=== PATIENT | male | born 1935 | race Caucasian/White ===

== ENCOUNTER 2017-01-21 09:07 | Inpatient (IN) | payer MEDICARE, BC ==
[2017-01-21] MEDS ORDERED: Sodium Chloride 0.9% 5 ML Syringe FLUSH PRN ×2 (09:19→10:36)
--- NOTE | 2017-01-21 09:21 | EDM.PDOC ---
ED HPI DIZZINESS - General Chief Complaint: Neurological Problem Stated Complaint: Dizziness Time Seen by Provider: 01/21/17 09:10 Source of Information: Reports: Patient, EMS Exam Limitations: Reports: No limitations - History of Present Illness INITIAL COMMENTS - FREE TEXT/NARRATIVE: 81 YO WM presents to ER by EMS from [facility] with complaint of dizziness and near syncope. Pt reports waking around 6:30am feeling lightheaded with mild ataxia. Pt states he went back to bed and woke around 8:30am and upon standing felt dizzy and fell to the floor. Pt called EMS. Pt denies any injury but states when he moves his head he can reproduce the dizziness. Pt denies any chest pain , denies shortness of breath, denies nausea/vomiting. Pt states he has had a "head cold" for the last couple of weeks which he has been taking mucinex. Symptom Onset Date: 01/21/17 Symptom Onset Time: 06:30 Baseline Function: Reports: ambulatory, needs assistance Quality: Reports: lightheaded Severity: mild Improves With: Reports: head movement Worsens With: Reports: head movement Context, Dizziness: Reports: recent illness. Denies: recent infection, recent trauma, recent air travel, drug abuse, alcohol abuse, new medications Associated Symptoms: Reports: decreased ability to walk, off balance, falls, needs assistance to walk - Related Data Allergies/ADRs: Allergies Allergy/AdvReac Type Severity Reaction Status Date / Time Penicillins Allergy Swelling Verified 01/21/17 10:03 vancomycin Allergy Anaphylactic Verified 01/21/17 10:03 Shock ED ROS GENERAL - Review of Systems Review Of Systems: ROS reveals no pertinent complaints other than HPI. Constitutional: Reports: no symptoms HEENT: Reports: No symptoms Respiratory: Reports: no symptoms Cardiovascular: Reports: Edema, Lightheadedness. Denies: Chest pain, Blood pressure problem, Claudication, Orthopnea, Palpitations, Syncope Endocrine: Reports: no symptoms GI/Abdominal: Reports: No symptoms : Reports: no symptoms Musculoskeletal: Reports: no symptoms Skin: Reports: no symptoms Neurological: Reports: dizziness, weakness. Denies: confusion, headache, numbness, paresthesia, pre-existing deficit, seizure, syncope, trouble speaking , change in speech Psychiatric: Reports: No symptoms Hematologic/Lymphatic: Reports: no symptoms Immunologic: Reports: no symptoms ED EXAM, DIZZINESS - Physical Exam Exam: See Below Exam Limited By: No limitations General Appearance: alert, WD/WN, no apparent distress Eye Exam: bilateral eye: PERRL Ears: normal external exam, normal canal, hearing grossly normal, normal TMs Nose: nasal drainage Throat/Mouth: Normal inspection, Normal lips, Normal teeth, Normal gums, Normal oropharynx, Normal voice, No airway compromise Head Exam: atraumatic, normocephalic Neck: normal inspection, supple, non-tender, full range of motion Respiratory/Chest: no respiratory distress, no accessory muscle use, chest non- tender, decreased breath sounds Cardiovascular: JVD, irregularly irregular. No: no edema GI/Abdominal: normal bowel sounds, soft, non tender, no organomegaly, no distention, no abnormal bruit, no mass Neurological: alert, normal mood/affect, normal dorsiflexion, CN II-XII intact, normal plantar flexion, normal gait, normal reflexes, no motor/sensory deficits , oriented x 3 Back Exam: normal inspection, full range of motion, NT Extremities: pedal edema Psychiatric: normal affect, normal mood Skin Exam: Warm, Dry, Intact, Normal color, No rash EKG INTERPRETATION EKG Date: 01/21/17 Time: 09:30 Rhythm: NSR Rate (beats/min): 63 [place]: normal P-wave: absent QRS: LBBB ST-T: normal QT: normal Course - Vital Signs Last Recorded V/S: Last Vital Signs Temp 36.2 C 01/21/17 09:30 Pulse 70 01/21/17 09:30 Resp 26 H 01/21/17 09:30 BP 170/67 H 01/21/17 09:30 Pulse Ox 89 L 01/21/17 09:30 - Orders/Labs/Meds Orders: Active Orders 24 hr Category Date Time Status EKG Documentation Completion [RC] ASDIRECTED Care 01/21/17 09:20 Active Chest 1V Frontal [CR] Stat Exams 01/21/17 09:19 Taken Head wo Cont [CT] Stat Exams 01/21/17 09:19 Taken UA W/MICROSCOPIC [URIN] Stat Lab 01/21/17 09:19 Uncollected Sodium Chloride 0.9% [Syrex Flush] Med 01/21/17 09:19 Active 5 ml FLUSH Q8HR PRN Peripheral IV Insertion Adult [OM.PC] Routine Oth 01/21/17 09:19 Ordered EKG 12 Lead [EK] Routine Ther 01/21/17 09:19 Ordered Medication Orders Sodium Chloride (Syrex Flush) 5 ml FLUSH Q8HR PRN PRN Reason: Keep Vein Open Labs: Laboratory Tests 01/21/17 01/21/17 01/21/17 Range/Units 09:25 09:25 09:25 WBC 7.6 (5.0-10.0) 10^3/uL RBC 4.19 L (4.50-6.00) 10^6/uL Hgb 12.6 L (13.0-17.0) g/dL Hct 37.6 L (40.0-52.0) % MCV 89.8 (82.0-92.0) fL MCH 30.1 (27.0-31.0) pg MCHC 33.6 (32.0-36.0) g/dL RDW 15.6 H (11.5-14.5) % Plt Count 152 (150-300) 10^3/uL MPV 7.1 L (7.4-10.4) fL Neut % (Auto) 79.8 H (50.0-70.0) % Lymph % (Auto) 13.8 L (20.0-40.0) % [place]gs % (Auto) 4.0 (2.0-8.0) % Eos % (Auto) 1.7 (1.0-3.0) % Baso % (Auto) 0.7 (0.0-1.0) % Neut # 6.1 (2.5-7.0) 10^3/uL Lymph # 1.0 (1.0-4.0) 10^3/uL Griggs # 0.3 (0.1-0.8) 10^3/uL Eos # 0.1 (0.1-0.3) 10^3/uL Baso # 0.1 (0.0-0.1) 10^3/uL PT 26.7 H (8.9-11.4) SEC INR 2.5 H (0.9-1.1) APTT 34.9 H (20.8-31.2) SEC Sodium 143 (136-145) mmol/L Potassium 3.9 (3.3-5.3) mmol/L Chloride 105 (98-115) mmol/L Carbon Dioxide 27.8 (21.0-32.0) mmol/L BUN 22 (6-25) mg/dL Creatinine 0.98 (0.51-1.17) mg/dL Est Cr Clr Drug Dosing 58.12 mL/min Estimated GFR (MDRD) > 60 mL/min Glucose 110 (70-110) mg/dL Calcium 8.5 L (8.7-10.3) mg/dL Total Bilirubin 0.7 (0.2-1.0) mg/dL AST 22 (15-37) U/L ALT 19 (12-78) U/L Alkaline Phosphatase 137 H (46-116) IU/L Creatine Kinase 47 (26-276) U/L CK-MB (CK-2) 0.70 (0.00-4.30) ng/mL Troponin I 0.05 (0.00-0.070) ng/mL B-Natriuretic Peptide 210 H (0-100) pg/mL Total Protein 6.8 (6.4-8.2) g/dL Albumin 3.26 (3.00-4.80) g/dL Meds: Medications Generic Name Dose Route Start Last Admin Trade Name Freq PRN Reason Stop Dose Admin Sodium Chloride 5 ml 01/21/17 09:19 Syrex Flush FLUSH Q8HR PRN Keep Vein Open - Radiology Interpretation Free Text/Narrative:: CT Head- mild generalized atrophy with small vessel ischemic changes. NAD CXR- NAD; cardiomegaly Departure - Departure Time of Disposition: 10:35 Disposition: Refer to Observation Condition: fair Clinical Impression: Dizziness, Peripheral edema - My Orders Last 24 Hours: My Active Orders 01/21/17 09:19 Chest 1V Frontal [CR] Stat Head wo Cont [CT] Stat UA W/MICROSCOPIC [URIN] Stat Sodium Chloride 0.9% [Syrex Flush] 5 ml FLUSH Q8HR PRN Peripheral IV Insertion Adult [OM.PC] Routine EKG 12 Lead [EK] Routine 01/21/17 09:20 EKG Documentation Completion [RC] ASDIRECTED - Assessment/Plan Last 24 Hours: My Active Orders 01/21/17 09:19 Chest 1V Frontal [CR] Stat Head wo Cont [CT] Stat UA W/MICROSCOPIC [URIN] Stat Sodium Chloride 0.9% [Syrex Flush] 5 ml FLUSH Q8HR PRN Peripheral IV Insertion Adult [OM.PC] Routine EKG 12 Lead [EK] Routine 01/21/17 09:20 EKG Documentation Completion [RC] ASDIRECTED Assessment:: 1. dizziness- r/o cerebellar injury 2. pedal edema Plan: 1. admit for observation 2. continue coumadin 3. MRI/MRA brain 4. lasix 20mg IV for peripheral edema
[2017-01-21 10:05] LABS: CHLORIDE,CL 105 mmol/L (98-115); SODIUM,NA 143 mmol/L (136-145)
[2017-01-21] MEDS ORDERED: GADOPENTETATE DIMEGLUMINE IVPUSH ONE ×3 (12:48→12:49)
[2017-01-21] MEDS ORDERED: Lidocaine 2% 100 MG/5 ML Syringe IVPUSH PRN (13:25)
[2017-01-21] MEDS ORDERED: Atropine 0.1 MG/ML 10 ML Syringe IVPUSH PRN (13:25)
[2017-01-21] MEDS ORDERED: Nitroglycerin 0.4 MG Tab.SL SL PRN (13:25)
[2017-01-21] MEDS ORDERED: EPINEPHrine 1:10,000 1 MG/10 ML Syringe IVPUSH PRN (13:25)
[2017-01-21] MEDS ORDERED: Acetaminophen 650 MG Tab.ER PO PRN (13:35)
[2017-01-21] MEDS: Losartan 50 MG Tab PO SCH (15:29)
[2017-01-21] MEDS: Docusate Sodium 100 MG Cap PO SCH (15:29)
[2017-01-21] MEDS: atorvaSTATin 10 MG Tab PO SCH (15:32)
[2017-01-21] MEDS: Sertraline 50 MG Tab PO SCH (15:32)
[2017-01-21] MEDS: Warfarin 5 MG Tab PO SCH (15:32)
[2017-01-21] MEDS: Potassium Chloride 10 MEQ Tab.ER PO SCH (15:33)
[2017-01-21] MEDS: Meclizine 25 MG Tab PO PRN (18:11)
[2017-01-21] MEDS: Hydrochlorothiazide/Triamterene 25-37.5 MG Cap PO SCH (18:11)
[2017-01-22] MEDS: Potassium Chloride 10 MEQ Tab.ER PO SCH (08:28)
[2017-01-22] MEDS: Docusate Sodium 100 MG Cap PO SCH (08:28)
[2017-01-22] MEDS: Sertraline 50 MG Tab PO SCH (08:28)
[2017-01-22] MEDS: Warfarin 5 MG Tab PO SCH (08:28)
[2017-01-22] MEDS: Losartan 50 MG Tab PO SCH (08:28)
[2017-01-22] MEDS: atorvaSTATin 10 MG Tab PO SCH (08:28)
[2017-01-22] MEDS: Hydrochlorothiazide/Triamterene 25-37.5 MG Cap PO SCH (08:32)
[2017-01-22] MEDS: Meclizine 25 MG Tab PO PRN (09:53)
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
[2017-01-22] MEDS: Furosemide 40 MG Tab PO SCH (13:13)
[2017-01-22] MEDS: Lutein/Minerals/Vitamins A, C & E Tab PO SCH (13:13)
[2017-01-23] MEDS: Docusate Sodium 100 MG Cap PO SCH (08:20)
[2017-01-23] MEDS: Warfarin 5 MG Tab PO SCH (08:21)
[2017-01-23] MEDS: Losartan 50 MG Tab PO SCH (08:21)
[2017-01-23] MEDS: Furosemide 40 MG Tab PO SCH (08:22)
[2017-01-23] MEDS: Potassium Chloride 10 MEQ Tab.ER PO SCH (08:22)
[2017-01-23] MEDS: Lutein/Minerals/Vitamins A, C & E Tab PO SCH (08:23)
[2017-01-23] MEDS: atorvaSTATin 10 MG Tab PO SCH (08:25)
[2017-01-23] MEDS: Sertraline 50 MG Tab PO SCH (08:26)
--- NOTE | 2017-01-23 11:44 | PN ---
01/23/2017 PATIENT NAME: KEVAN ANTHONY SUBJECTIVE: This is an 81-year-old gentleman that was at home. He lives by himself in assisted living. He does have some episodes of dizziness. He tells me he actually fell, he did injure himself, but he was able to walk safely. He says the dizziness did not improve. At that time, he did call the ambulance service to come get him. He was seen in the ER here at the [facility] and evaluated at that time. The patient states that he is still really dizzy today. He denies any chest pain, shortness of breath, or heart palpitations. He says that when he is up moving around, he is more dizzy. He says he has double vision. He is wearing an eye patch. Today, he says when he wears the eye patch, the double vision does not affect him and he is not so wobbly on his feet. He says it helps with the dizziness. He says his appetite has been good. OBJECTIVE: VITAL SIGNS: Today, temperature is 98.4, pulse is 75, blood pressure is 147/80, the patient's respiratory rate is 28, oxygen saturations are 93% on room air. GENERAL: This is an elderly gentleman in no acute distress. He is wearing an eye patch at this time. HEART: Sounds are distant, but he does have a murmur with his artificial valve. LUNGS: Sounds are clear in upper lobes, diminished at bilateral bases mostly. ABDOMEN: Soft, nontender, nondistended. Bowel sounds present x4. LABORATORY DATA: The patient's lab work today: He did not have any. He had a CBC obtained on , which showed a white count within normal range at 7.6, hemoglobin 12.6, and platelet count 152. Chemistry panel was unremarkable except for alkaline phosphatase was slightly elevated at 137. The patient's brain natriuretic peptide was slightly elevated at that time at 210. IMPRESSION AND PLAN: 1. Vertigo. Plan: The patient may have meclizine 25 mg as needed every four hours for dizziness. He was seen by Physical Therapy yesterday for vestibular rehab and walking/ gait. I will have the nurses walk him in the halls four times a day today to see how he does. 2. Diplopia with macular degeneration. Plan: Continue with the eye patch at this time. He does see his storekeeper steward on a regular basis. 3. Chronic atrial fibrillation, on anticoagulation therapy. Plan: Continue with Coumadin at this time. The patient's INR on admission was within acceptable range at 2.5. We will continue with telemetry. 4. History of transient ischemic attacks: The patient's MRA and MRI were negative for any acute findings. We will continue with aspirin at 81 mg daily. 5. History of congestive heart failure. Plan: The patient's most recent cardiac echo did show ejection fracture of 50%. We will continue with accurate inputs and outputs and daily weights. We will also continue with a low-salt diet. The patient is on Lasix 40 mg daily along with Cozaar 50 mg daily, potassium chloride 10 mEq daily for diuretic therapy. 6. Aortic stenosis. The patient is status post aortic valve repair that was just recently done last April. 7. History of mitral valve repair back in 1978. Plan: Continue with Coumadin, stable. 8. Hypertension. Plan: Blood pressures have been controlled. Continue with Cozaar 50 mg daily. 9. Hyperlipidemia. Plan: Continue with Lipitor 10 mg daily. 10.History of depression. Plan: Continue with Zoloft 25 mg daily. 11.Anemia. Plan: The patient's hemoglobin was stable on at 12.6. 12.Obstructive sleep apnea. Plan: Continue with continuous positive airway pressure mask. The patient has his own mask here in the hospital. 13.Overall plan: The patient seems to be doing okay. We will continue to monitor the patient. We will repeat the patient's lab work. /[id number]/MODL MTDD
[2017-01-24] MEDS: Docusate Sodium 100 MG Cap PO SCH (08:02)
[2017-01-24] MEDS: Warfarin 5 MG Tab PO SCH (08:03)
[2017-01-24] MEDS: Lutein/Minerals/Vitamins A, C & E Tab PO SCH (08:03)
[2017-01-24] MEDS: Furosemide 40 MG Tab PO SCH (08:03)
[2017-01-24] MEDS: Potassium Chloride 10 MEQ Tab.ER PO SCH (08:04)
[2017-01-24] MEDS: Sertraline 50 MG Tab PO SCH (08:04)
[2017-01-24] MEDS: Losartan 50 MG Tab PO SCH (08:04)
[2017-01-24] MEDS: atorvaSTATin 10 MG Tab PO SCH (08:05)
--- NOTE | 2017-01-24 12:49 | PN ---
01/24/2017 PATIENT NAME: KEVAN ANTHONY SUBJECTIVE: This is an 81-year-old gentleman who lives by himself in an assisted living, and he was having some episodes of dizziness. He had unsteady gait. He also has been complaining of some double vision with his macular degeneration. He felt he was unsafe at his home. He states he did fall but did not injure himself. He was brought into the emergency room at that time. Today, the patient states that he has been able to get up and walk a little bit in the [place] by himself. He has to hold onto the railing. He still feels quite dizzy. He says that he just feels weak. He says he just does not have the strength that he usually has. He is still concerned about going home by himself with the double vision, dizziness, and weakness. He denies any chest pain, shortness of breath, or heart palpitations. OBJECTIVE: VITAL SIGNS: Today, temperature is 97.3, pulse is 61, blood pressure is 142/69. The patient's respiratory rate is 20. The patient's oxygen saturations on room air is 93%. GENERAL: This is an elderly white male in no acute distress with an eye patch on his right eye. HEART: Heart tones, the patient does have a distinct murmur with his artificial heart valve. LUNGS: Lung sounds are clear in upper lobes, diminished at bilateral bases. ABDOMEN: Large, nontender, nondistended. Bowel sounds present x4. EXTREMITIES: The patient does have +3 bilateral pitting edema, which he states is his baseline. The patient did not have any lab work drawn today. IMPRESSION AND PLAN: 1. Vertigo/dizziness. Plan: The patient does have meclizine 25 mg that he takes every 4 hours as needed for dizziness. The patient was seen by Physical Therapy on Wednesday for strengthening, conditioning, and vestibular rehab. He will be seen again tomorrow, Wednesday. I did have the patient walk in the [place] 4 times a day with nursing staff here over the weekend. 2. Diplopia with history of macular degeneration. Plan: Continue with right eye patch at this time. The patient states he does have an appointment here in about a week with Dr. Fu, who is his polisher eyeglass frames in [place]. 3. Chronic atrial fibrillation, on anticoagulation therapy. Plan: Continue with Coumadin at this time. INR on admission was within acceptable range at 2.5. We will continue with telemetry. He has been rate controlled. 4. History of transient ischemic attacks. The patient's MRA and MRI were negative for any acute findings on admission in the ER. We will continue with aspirin 81 mg daily. 5. History of congestive heart failure. Plan: The patient's most recent cardiac echo did show an ejection fraction of 50%. We will continue with daily weights and accurate I and Os. Continue with low-salt diet. The patient continues on Lasix 40 mg daily along with Cozaar 50 mg daily. He also received potassium chloride 10 mEq daily. This is his diuretic therapy regimen. 6. Aortic stenosis. The patient is status post aortic valve repair this past April. 7. History of mitral valve repair back in 1978. Plan: Continue with Coumadin, he has been stable. 8. Hypertension. Plan: Blood pressures have been controlled. Continue with Cozaar 50 mg daily. 9. History of hyperlipidemia. Plan: Continue with Lipitor 10 mg daily. 10.History of depression. Plan: Continue with Zoloft 25 mg daily. 11.Anemia. Plan: The patient's hemoglobin was stable on admission at 12.6. We will repeat a CBC tomorrow morning. 12.Obstructive sleep apnea. Plan: Continue with CPAP mask at night. He does have his own mask here that he uses in the hospital. OVERALL PLAN: The patient will be evaluated by physical therapy again tomorrow, possibly swing bed status tomorrow for strengthening and vestibular rehab. /[id number]/MODL
[2017-01-25 06:08] VITALS: BP 133/76
[2017-01-25 08:00] LABS: CHLORIDE,CL 106 mmol/L (98-115); SODIUM,NA 142 mmol/L (136-145)
[2017-01-25] MEDS: Warfarin 5 MG Tab PO SCH (08:51)
[2017-01-25] MEDS: Docusate Sodium 100 MG Cap PO SCH (08:51)
[2017-01-25] MEDS: Losartan 50 MG Tab PO SCH (08:52)
[2017-01-25] MEDS: Potassium Chloride 10 MEQ Tab.ER PO SCH (08:52)
[2017-01-25] MEDS: Furosemide 40 MG Tab PO SCH (08:53)
[2017-01-25] MEDS: Lutein/Minerals/Vitamins A, C & E Tab PO SCH (08:53)
[2017-01-25] MEDS: Sertraline 50 MG Tab PO SCH (08:53)
[2017-01-25] MEDS: atorvaSTATin 10 MG Tab PO SCH (08:53)
--- NOTE | 2017-01-27 12:57 | PCM.DCSUM1 ---
Discharge Summary - Hospital Course Brief History: 81-year-old was initially admitted THROUGH the ED via ambulance with complaints of all near syncope/dizziness. Patient lives in [facility] and does have a wet macular degeneration and history for TIAs. Upon admission he had stated that early the day prior he started having some lightheadedness and staggering around. He then went back to bed and woke up again upon standing he had some dizziness and that's when he fell to the floor. He did not hit his head. That time he notified EMS because of his dizziness every time he seemed to move his head. He denied any nausea vomiting that was associated with his dizziness. Did have recent head cold with mild mucous production past few days however denies any hearing loss. He was admitted for further workup. It was determined that he would likely benefit from physical therapy due to his unsteady gait, high risk for falls and further injury, and weakness - Discharge Data Discharge Date: 01/25/17 Discharge Disposition: DC/Tfer W/I Hosp To Swing 61 Condition: Fair - Patient Summary/Data Consults: Consultations 01/22/17 09:30 Consult to Physical Therapy [PT Evaluation and Treatment] [CONS] Routine Hospital Course: Patient's hospital course went well. He had ongoing diplopia vertical however he had full movement bilateral ocular movement and gaze. MRA/MRI of the head and neck did show chronic ischemic changes and luncar infarcts that are chronic. We consulted with Dr Fu regarding ongoing diplopia and he felt since no acute processes on MRI/MRA that most likely not retinol patholgy regarding the patient's diplopia and recommend that he see his regular block saw operator. A patch was placed on patients right eye. He had no fever, no focal neurological deficits, facial drooping or confusion or any paresthesias that would indicate acute process or stroke. Therapy evaluated the patient and believed he could benefit due to his weakness in his lower extremities and mild ataxia as the patient does live in assisted living facility. - Discharge Plan Home Medications: Home Meds Acetaminophen [Tylenol Arthritis] 650 mg PO Q8H PRN 01/21/17 [History] Aspirin [Lo-Dose Aspirin EC] 81 mg PO DAILY 01/21/17 [History] Docusate Sodium [Colace] 200 mg PO DAILY 01/21/17 [History] Furosemide [Furosemide] 40 mg PO DAILY 01/21/17 [History] Losartan [Cozaar] 50 mg PO DAILY 01/21/17 [History] Potassium Chloride [Klor-Con M20] 10 meq PO DAILY 01/21/17 [History] Sertraline [Zoloft] 25 mg PO DAILY 01/21/17 [History] Vit A/Vit C/Vit E/Zinc/Copper [Preservision] 1 cap PO DAILY 01/21/17 [History] Vitamin B Complex 1 each PO DAILY 01/21/17 [History] Warfarin [Coumadin] 7.5 mg PO DAILY 01/21/17 [History] atorvaSTATin Calcium [Atorvastatin Calcium] 10 mg PO DAILY 01/21/17 [History] - Discharge Summary/Plan Comment DC Time >30 min.: Yes Discharge Summary/Plan Comment: Due to the patient's unsteady gait and weakness he will be placed in swing bed therapy for rehabilitation. FINAL DIAGNOSIS Primary: Vertigo; likely peripheral etiology. 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 Questionable etiology; doubtful retinal pathology. Macular degeneration, Secondary Atrial fibrillation, chronic, History of TIA; HFrEF, chronic, diastolic, EF50%; Pulmonary hypertension, severe, Aortic stenosis; status post TAVR April 2016, History of mitral valve replacement with mechanical valve; Hypertension; Venous insufficiency with chronic edema/lymphedema; Hyperlipidemia, Depression, Anemia; normocytic, normochromic with slightly elevated RDW with cell size varibility; Obstructive sleep apnea; Pseudo-hypocalcemia; corrected with albumin Acid reflux; - Patient Data Vitals - Most Recent: Last Vital Signs Temp 97.4 F 01/25/17 06:07 Pulse 55 L 01/25/17 06:07 Resp 20 01/25/17 06:07 BP 133/76 01/25/17 08:52 Pulse Ox 94 L 01/25/17 09:11 Orthostatic Blood Pressure [ 133/64 Standing] Orthostatic Blood Pressure [ 142/77 Sitting] Orthostatic Blood Pressure [ 136/69 Supine] Weight - Most Recent: 238 lb Med Orders - Current: Current Medications Discontinued Medications Acetaminophen (Tylenol Arthritis Pain) 650 mg PO Q8H PRN PRN Reason: Pain Last Admin: 01/21/17 20:22 Dose: 650 mg Atorvastatin Calcium (Lipitor) 10 mg PO DAILY [facility] Last Admin: 01/25/17 08:53 Dose: 10 mg Atropine Sulfate (Atropine 0.1 Mg/Ml) 0 mg IVPUSH ASDIRECTED PRN PRN Reason: Heart Docusate Sodium (Colace) 200 mg PO DAILY [facility] Last Admin: 01/25/17 08:51 Dose: 200 mg Epinephrine HCl (Epinephrine 1:10,000) 1 mg IVPUSH ASDIRECTED PRN PRN Reason: Heart Furosemide (Lasix) 40 mg PO DAILY [facility] Last Admin: 01/25/17 08:53 Dose: 40 mg Gadopentetate Dimeglumine (Magnevist) 20 ml IVPUSH ONETIME ONE Stop: 01/21/17 12:49 Last Admin: 01/21/17 13:25 Dose: 20 ml Lidocaine HCl (Xylocaine 2%) 0 mg IVPUSH ASDIRECTED PRN PRN Reason: Heart Losartan Potassium (Cozaar) 50 mg PO DAILY [facility] Last Admin: 01/25/17 08:52 Dose: 50 mg Meclizine HCl (Antivert) 25 mg PO Q6H PRN PRN Reason: Dizziness Last Admin: 01/22/17 09:53 Dose: 25 mg Multivitamins/Minerals (Ocuvite) 1 each PO DAILY [facility] Last Admin: 01/25/17 08:53 Dose: 1 each Nitroglycerin (Nitrostat) 0.4 mg SL ASDIRECTED PRN PRN Reason: Heart Potassium Chloride (Klor-Con 10) 10 meq PO DAILY [facility] Last Admin: 01/25/17 08:52 Dose: 10 meq Sertraline HCl (Zoloft) 25 mg PO DAILY [facility] Last Admin: 01/25/17 08:53 Dose: 25 mg Sodium Chloride (Syrex Flush) 5 ml FLUSH Q8HR PRN PRN Reason: Keep Vein Open Triamterene/HCTZ (Dyazide 25-37.5 Mg) 1 each PO DAILY [facility] Last Admin: 01/22/17 08:32 Dose: Not Given Warfarin Sodium (Coumadin) 7.5 mg PO DAILY [facility] Last Admin: 01/25/17 08:51 Dose: 7.5 mg *Q Meaningful Use (DIS) - VTE *Q VTE Criteria *Q: - Stroke *Q Stroke Criteria *Q: - AMI *Q AMI Criteria *Q:
== END 2017-01-25 11:00 | disposition swing bed (61) | DRG 149 ==
LOC: KA.ED 09:07 → KA.MS 11:20 → OBSVTOIN 01-22 09:30
PROVIDERS: ADMIT Physician Assistant Medical; ATTEND Nurse Practitioner Family
DX: R42 Dizziness and giddiness (principal); R60.9 Edema, unspecified; I50.32 Chronic diastolic (congestive) heart failure; R55 Syncope and collapse; H53.2 Diplopia; H35.30 Unspecified macular degeneration; E83.51 Hypocalcemia; I48.2 Chronic atrial fibrillation; Z86.73 Personal history of transient ischemic attack (TIA), and cerebral infarction without residual deficits; I11.0 Hypertensive heart disease with heart failure; I27.2 Other secondary pulmonary hypertension; I35.0 Nonrheumatic aortic (valve) stenosis; Z95.2 Presence of prosthetic heart valve; I87.2 Venous insufficiency (chronic) (peripheral); E78.5 Hyperlipidemia, unspecified; F32.9 Major depressive disorder, single episode, unspecified; D64.9 Anemia, unspecified; G47.33 Obstructive sleep apnea (adult) (pediatric); K21.9 Gastro-esophageal reflux disease without esophagitis; Z79.01 Long term (current) use of anticoagulants; Z79.899 Other long term (current) drug therapy; Z88.0 Allergy status to penicillin; Z88.1 Allergy status to other antibiotic agents; W19.XXXA Unspecified fall, initial encounter
CPT/HCPCS: 70450; 70544; 70553; 71010; 80053; 81001; 82550; 82553; 83880; 84484; 85025; 85610; 85730; 93005; 99285; A9270 ×14; A9579; G0378; 36415; 97162-GP

== ENCOUNTER 2017-01-25 10:02 | Inpatient (IN) | payer MEDICARE, BC ==
[2017-01-25] MEDS ORDERED: Meclizine 25 MG Tab PO PRN (10:51)
[2017-01-25] MEDS ORDERED: EPINEPHrine 1:10,000 1 MG/10 ML Syringe IVPUSH PRN (10:51)
[2017-01-25] MEDS ORDERED: Acetaminophen 650 MG Tab.ER PO PRN ×2 (10:51→15:29)
[2017-01-25] MEDS ORDERED: Lidocaine 2% 100 MG/5 ML Syringe IVPUSH PRN (10:51)
[2017-01-25] MEDS ORDERED: Nitroglycerin 0.4 MG Tab.SL SL PRN (10:51)
[2017-01-25] MEDS ORDERED: Atropine 0.1 MG/ML 10 ML Syringe IVPUSH PRN (10:51)
[2017-01-26] MEDS: Docusate Sodium 100 MG Cap PO SCH (08:27)
[2017-01-26] MEDS: atorvaSTATin 10 MG Tab PO SCH (08:28)
[2017-01-26] MEDS: Warfarin 5 MG Tab PO SCH (08:28)
[2017-01-26] MEDS: Furosemide 40 MG Tab PO SCH (08:29)
[2017-01-26] MEDS: Potassium Chloride 10 MEQ Tab.ER PO SCH (08:29)
[2017-01-26] MEDS: Aspirin 81 MG Tab.EC PO SCH (08:29)
[2017-01-26] MEDS: Losartan 50 MG Tab PO SCH (08:29)
[2017-01-26] MEDS: Vitamin B Complex Tab PO SCH (08:30)
[2017-01-26] MEDS: Lutein/Minerals/Vitamins A, C & E Tab PO SCH (08:30)
[2017-01-26] MEDS: Sertraline 50 MG Tab PO SCH (08:30)
[2017-01-26] MEDS ORDERED: Warfarin 5 MG Tab PO SCH (09:00)
[2017-01-26] MEDS ORDERED: Furosemide 20 MG Tab PO SCH (09:00)
[2017-01-26] MEDS ORDERED: Losartan 50 MG Tab PO SCH (09:00)
[2017-01-26] MEDS ORDERED: VIT A PO SCH (09:00)
[2017-01-26] MEDS ORDERED: VIT E PO SCH (09:00)
[2017-01-26] MEDS ORDERED: Potassium Chloride 20 MEQ Tab.ER PO SCH (09:00)
[2017-01-26] MEDS ORDERED: ZINC PO SCH (09:00)
[2017-01-26] MEDS ORDERED: COPPER PO SCH (09:00)
[2017-01-26] MEDS ORDERED: VIT C PO SCH (09:00)
[2017-01-26] MEDS ORDERED: Docusate Sodium 100 MG Cap PO SCH (09:00)
[2017-01-26] MEDS ORDERED: SERTRALINE 25 MG PO SCH (09:00)
[2017-01-26] MEDS ORDERED: atorvaSTATin 10 MG Tab PO SCH (09:00)
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
[2017-01-27] MEDS: Docusate Sodium 100 MG Cap PO SCH (10:24)
[2017-01-27] MEDS: Aspirin 81 MG Tab.EC PO SCH (10:24)
[2017-01-27] MEDS: Vitamin B Complex Tab PO SCH (10:24)
[2017-01-27] MEDS: Warfarin 5 MG Tab PO SCH (10:24)
[2017-01-27] MEDS: Potassium Chloride 10 MEQ Tab.ER PO SCH (10:25)
[2017-01-27] MEDS: atorvaSTATin 10 MG Tab PO SCH (10:25)
[2017-01-27] MEDS: Furosemide 40 MG Tab PO SCH (10:25)
[2017-01-27] MEDS: Losartan 50 MG Tab PO SCH (10:25)
[2017-01-27] MEDS: Sertraline 50 MG Tab PO SCH (10:25)
[2017-01-27] MEDS: Lutein/Minerals/Vitamins A, C & E Tab PO SCH (10:25)
[2017-01-28] MEDS: Docusate Sodium 100 MG Cap PO SCH (08:52)
[2017-01-28] MEDS: Warfarin 5 MG Tab PO SCH (08:52)
[2017-01-28] MEDS: Losartan 50 MG Tab PO SCH (08:53)
[2017-01-28] MEDS: Furosemide 40 MG Tab PO SCH (08:53)
[2017-01-28] MEDS: Aspirin 81 MG Tab.EC PO SCH (08:53)
[2017-01-28] MEDS: Lutein/Minerals/Vitamins A, C & E Tab PO SCH (08:53)
[2017-01-28] MEDS: Potassium Chloride 10 MEQ Tab.ER PO SCH (08:53)
[2017-01-28] MEDS: Vitamin B Complex Tab PO SCH (08:54)
[2017-01-28] MEDS: Sertraline 50 MG Tab PO SCH (08:54)
[2017-01-28] MEDS: atorvaSTATin 10 MG Tab PO SCH (08:54)
[2017-01-28] MEDS ORDERED: GADOPENTETATE DIMEGLUMINE IVPUSH ONE (17:16)
[2017-01-29] MEDS: Losartan 50 MG Tab PO SCH (08:28)
[2017-01-29] MEDS: Sertraline 50 MG Tab PO SCH (08:29)
[2017-01-29] MEDS: Potassium Chloride 10 MEQ Tab.ER PO SCH (08:29)
[2017-01-29] MEDS: Vitamin B Complex Tab PO SCH (08:29)
[2017-01-29] MEDS: Docusate Sodium 100 MG Cap PO SCH (08:29)
[2017-01-29] MEDS: Aspirin 81 MG Tab.EC PO SCH (08:30)
[2017-01-29] MEDS: atorvaSTATin 10 MG Tab PO SCH (08:30)
[2017-01-29] MEDS: Lutein/Minerals/Vitamins A, C & E Tab PO SCH (08:30)
[2017-01-29] MEDS: Furosemide 40 MG Tab PO SCH (08:30)
[2017-01-30] MEDS: Docusate Sodium 100 MG Cap PO SCH (08:51)
[2017-01-30] MEDS: Vitamin B Complex Tab PO SCH (08:52)
[2017-01-30] MEDS: Aspirin 81 MG Tab.EC PO SCH (08:52)
[2017-01-30] MEDS: Lutein/Minerals/Vitamins A, C & E Tab PO SCH (08:52)
[2017-01-30] MEDS: Potassium Chloride 10 MEQ Tab.ER PO SCH (08:52)
[2017-01-30] MEDS: Sertraline 50 MG Tab PO SCH (08:52)
[2017-01-30] MEDS: Losartan 50 MG Tab PO SCH (08:53)
[2017-01-30] MEDS: Furosemide 40 MG Tab PO SCH (08:53)
[2017-01-30] MEDS: atorvaSTATin 10 MG Tab PO SCH (08:53)
--- NOTE | 2017-01-30 12:35 | PCM.PN ---
- General Info Date of Service: 01/30/17 Admission Dx/Problem (Free Text): Chief complaint: Weakness History of present illness: Patient is an 81-year-old white male initially admitted to acute care through the emergency room department after having an episode of syncope and quite a bit of dizziness. Patient lives independently in assisted living-history of wet macular degeneration and TIAs. Patient started having problems early the day prior to admission with increased lightheadedness and staggering around. He reported that he went back to bed and woke up again upon standing-some dizziness even when he fell to the floor. Reported that he did not hit his head- reported dizziness every time he seemed to move his head. Denied any associated nausea/vomiting with the dizziness. At the same time he had had an upper respiratory tract infection with mild cold symptoms and a cough. Denied any hearing loss. Admitted to acute care for further workup evaluation and treatment. Patient was evaluated and treated during acute admission-maximized his acute admission benefit. Secondary to his unsteady gait, weakness, difficulty getting up from the chair and the fact that he lives alone-placed on skilled care swing bed for rehabilitation, strength building and gait training. 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 Denies: Fever, Chills HEENT: Reports: visual changes Pulmonary: Reports: no symptoms Cardiovascular: Reports: No Symptoms Gastrointestinal: Reports: No symptoms Genitourinary: Reports: no symptoms Neurological: Reports: Weakness, Other (No new focal acute motor or sensory deficits) Psychiatric: Reports: no symptoms - Patient Data Vitals - most recent: Last Vital Signs Temp 97.0 F 01/30/17 06:55 Pulse 66 01/30/17 06:55 Resp 20 01/30/17 06:55 BP 146/94 H 01/30/17 08:53 Pulse Ox 96 01/30/17 06:55 Orthostatic Blood Pressure [ 105/67 Standing] Orthostatic Blood Pressure [ 131/78 Sitting] Orthostatic Blood Pressure [ 125/72 Supine] Weight - most recent: 238 lb I&O - last 24 hours: Intake & Output 01/29/17 01/30/17 01/30/17 22:59 06:59 14:59 Intake Total 320 0 Balance 320 0 Lab Results last 24 hrs: Laboratory Results - last 24 hr 01/30/17 Range/Units 07:00 PT TNP INR 2.2 H (0.9-1.1) Med Orders - Current: Current Medications Acetaminophen (Tylenol Arthritis Pain) 650 mg PO Q8H PRN PRN Reason: Pain Aspirin (Halfprin) 81 mg PO DAILY [facility] Last Admin: 01/30/17 08:52 Dose: 81 mg Atorvastatin Calcium (Lipitor) 10 mg PO DAILY [facility] Last Admin: 01/30/17 08:53 Dose: 10 mg Docusate Sodium (Colace) 200 mg PO DAILY [facility] Last Admin: 01/30/17 08:51 Dose: 200 mg Furosemide (Lasix) 40 mg PO DAILY [facility] Last Admin: 01/30/17 08:53 Dose: 40 mg Losartan Potassium (Cozaar) 50 mg PO DAILY [facility] Last Admin: 01/30/17 08:53 Dose: 50 mg Meclizine HCl (Antivert) 25 mg PO Q6H PRN PRN Reason: Dizziness Multivitamins/Minerals (Ocuvite) 1 each PO DAILY [facility] Last Admin: 01/30/17 08:52 Dose: 1 each Potassium Chloride (Klor-Con 10) 10 meq PO DAILY [facility] Last Admin: 01/30/17 08:52 Dose: 10 meq Sertraline HCl (Zoloft) 25 mg PO DAILY [facility] Last Admin: 01/30/17 08:52 Dose: 25 mg Vitamin B Complex (Vitamin B Complex) 1 each PO DAILY [facility] Last Admin: 01/30/17 08:52 Dose: 1 each Warfarin Sodium (Coumadin) 7.5 mg PO DAILY [facility] Last Admin: 01/28/17 08:52 Dose: Not Given Discontinued Medications Gadopentetate Dimeglumine (Magnevist) 15 ml IVPUSH ONETIME ONE Stop: 01/28/17 17:17 Last Admin: 01/28/17 19:26 Dose: Not Given - Exam Quality Assessment: No: supplemental oxygen General: alert, oriented, cooperative, no acute distress, other (Sitting in the room working on his bills) HEENT: Pupils equal, Pupils reactive, Mucous membr. moist/pink. No: EOMI ( Slight strabismus), Scleral icterus Neck: supple, trachea midline, no JVD, no thyromegaly. No: lymphadenopathy Lungs: Decreased breath sounds, Crackles (Few crackles in the bases bilaterally) Cardiovascular: Regular Rate, Irregular Rhythm, Murmurs, Other (Developed click appreciated) Abdomen: bowel sounds present, soft, no tenderness, no distension, other (Obese) . No: rigidity, rebound, guarding, tenderness, distension Skin: warm, dry, intact Neurological: no new focal deficit Psy/Mental Status: alert, normal affect, normal mood - Problem List Review Problem List Initiated/Reviewed/Updated: Yes - Assessment Assessment:: #1-Acute dizziness/vertigo-suspect secondary to below #2-Acute lacunar ischemic infarction #5-Ysfgiqmu-enhrruelf-persistent/secondary #4-Macular degeneration-chronic #5-Generalized weakness and need for rehabilitation secondary to above #6-Chronic atrial fibrillation-controlled ventricular rate #7-Chronic anticoagulation therapy-adequate today-INR 2.2 #8-History of TIAs #9-Chronic diastolic heart failure #10-pulmonary pzvfzlvvhndz-dvlpiy-onrpelc of quite severe #11-Aortic stenosis-status post TAPVR April 2016 #12-History mitral valve replacement with mechanical valve #13-Hypertension #14-Venous insufficiency with chronic edema/lymphedema #78-Aqnliebhgxfxlc-ut Lipitor #58-Uhflhmibcd-qzbi control #26-Wpqwga-vgtxrkpuecbq normocytic #18-Obstructive sleep apnea-CPAP - Plan Plan:: #1-reviewed present treatment regimen-continue same regimen except changes as listed below #2-restart Coumadin #3-INR Wednesday per patient request-needs to have done within 48 hours of ophthalmology consult for macular degeneration shot
[2017-01-30] MEDS: Warfarin 5 MG Tab PO SCH ×2 (13:38→14:18)
[2017-01-31] MEDS: Sertraline 50 MG Tab PO SCH (08:08)
[2017-01-31] MEDS: Furosemide 40 MG Tab PO SCH (08:09)
[2017-01-31] MEDS: Potassium Chloride 10 MEQ Tab.ER PO SCH (08:09)
[2017-01-31] MEDS: Losartan 50 MG Tab PO SCH (08:09)
[2017-01-31] MEDS: Docusate Sodium 100 MG Cap PO SCH (08:09)
[2017-01-31] MEDS: Lutein/Minerals/Vitamins A, C & E Tab PO SCH (08:10)
[2017-01-31] MEDS: Aspirin 81 MG Tab.EC PO SCH (08:10)
[2017-01-31] MEDS: atorvaSTATin 10 MG Tab PO SCH (08:10)
[2017-01-31] MEDS: Vitamin B Complex Tab PO SCH (08:10)
[2017-01-31] MEDS: Warfarin 5 MG Tab PO SCH (11:27)
[2017-01-31] MEDS: Warfarin 2 MG Tab PO SCH (11:57)
[2017-02-01] MEDS: Losartan 50 MG Tab PO SCH (08:45)
[2017-02-01] MEDS: Docusate Sodium 100 MG Cap PO SCH (08:45)
[2017-02-01] MEDS: Aspirin 81 MG Tab.EC PO SCH (08:46)
[2017-02-01] MEDS: Furosemide 40 MG Tab PO SCH (08:47)
[2017-02-01] MEDS: atorvaSTATin 10 MG Tab PO SCH (08:47)
[2017-02-01] MEDS: Potassium Chloride 10 MEQ Tab.ER PO SCH (08:47)
[2017-02-01] MEDS: Vitamin B Complex Tab PO SCH (08:48)
[2017-02-01] MEDS: Sertraline 50 MG Tab PO SCH (08:48)
[2017-02-01] MEDS: Lutein/Minerals/Vitamins A, C & E Tab PO SCH (08:48)
[2017-02-01] MEDS: Warfarin 2 MG Tab PO SCH (09:59)
[2017-02-02] MEDS: Docusate Sodium 100 MG Cap PO SCH (08:57)
[2017-02-02] MEDS: Warfarin 2 MG Tab PO SCH (08:57)
[2017-02-02] MEDS: Losartan 50 MG Tab PO SCH (08:58)
[2017-02-02] MEDS: Aspirin 81 MG Tab.EC PO SCH (08:59)
[2017-02-02] MEDS: Potassium Chloride 10 MEQ Tab.ER PO SCH (08:59)
[2017-02-02] MEDS: atorvaSTATin 10 MG Tab PO SCH (09:00)
[2017-02-02] MEDS: Furosemide 40 MG Tab PO SCH (09:00)
[2017-02-02] MEDS: Lutein/Minerals/Vitamins A, C & E Tab PO SCH (09:01)
[2017-02-02] MEDS: Vitamin B Complex Tab PO SCH (09:01)
[2017-02-02] MEDS: Sertraline 50 MG Tab PO SCH (09:04)
[2017-02-03] MEDS: Warfarin 2 MG Tab PO SCH (08:40)
[2017-02-03] MEDS: Docusate Sodium 100 MG Cap PO SCH (08:40)
[2017-02-03] MEDS: Losartan 50 MG Tab PO SCH (08:41)
[2017-02-03] MEDS: Aspirin 81 MG Tab.EC PO SCH (08:42)
[2017-02-03] MEDS: atorvaSTATin 10 MG Tab PO SCH (08:42)
[2017-02-03] MEDS: Potassium Chloride 10 MEQ Tab.ER PO SCH (08:42)
[2017-02-03] MEDS: Furosemide 40 MG Tab PO SCH (08:42)
[2017-02-03] MEDS: Lutein/Minerals/Vitamins A, C & E Tab PO SCH (08:43)
[2017-02-03] MEDS: Vitamin B Complex Tab PO SCH (08:43)
[2017-02-03] MEDS: Sertraline 50 MG Tab PO SCH (08:43)
[2017-02-03] MEDS ORDERED: Magnesium Hydroxide 400 MG/5 ML Susp 30 ML Cup PO PRN (14:34)
[2017-02-04] MEDS: Docusate Sodium 100 MG Cap PO SCH ×2 (06:28→08:23)
[2017-02-04] MEDS: Warfarin 2 MG Tab PO SCH ×2 (06:29→08:23)
[2017-02-04] MEDS: Aspirin 81 MG Tab.EC PO SCH ×2 (06:30→08:23)
[2017-02-04] MEDS: Potassium Chloride 10 MEQ Tab.ER PO SCH ×2 (06:30→08:24)
[2017-02-04] MEDS: Losartan 50 MG Tab PO SCH ×2 (06:30→08:23)
[2017-02-04] MEDS: atorvaSTATin 10 MG Tab PO SCH ×2 (06:31→08:24)
[2017-02-04] MEDS: Vitamin B Complex Tab PO SCH ×2 (06:32→08:24)
[2017-02-04] MEDS: Lutein/Minerals/Vitamins A, C & E Tab PO SCH ×2 (06:32→08:24)
[2017-02-04] MEDS: Sertraline 50 MG Tab PO SCH ×2 (06:33→08:24)
[2017-02-04] MEDS: Furosemide 40 MG Tab PO SCH (08:24)
[2017-02-05] MEDS: Docusate Sodium 100 MG Cap PO SCH (08:00)
[2017-02-05] MEDS: Warfarin 2 MG Tab PO SCH (08:00)
[2017-02-05] MEDS: Aspirin 81 MG Tab.EC PO SCH (08:00)
[2017-02-05] MEDS: Losartan 50 MG Tab PO SCH (08:00)
[2017-02-05] MEDS: Potassium Chloride 10 MEQ Tab.ER PO SCH (08:01)
[2017-02-05] MEDS: Furosemide 40 MG Tab PO SCH (08:01)
[2017-02-05] MEDS: atorvaSTATin 10 MG Tab PO SCH (08:01)
[2017-02-05] MEDS: Vitamin B Complex Tab PO SCH (08:01)
[2017-02-05] MEDS: Lutein/Minerals/Vitamins A, C & E Tab PO SCH (08:01)
[2017-02-05] MEDS: Sertraline 50 MG Tab PO SCH (08:01)
--- NOTE | 2017-02-05 11:21 | PCM.PN ---
- General Info Date of Service: 02/05/17 Functional Status: Reports: tolerating diet, ambulating. Denies: new symptoms - Review of Systems General: Reports: No Symptoms HEENT: Reports: glasses, visual changes (Diplopia 75% improved). Denies: headaches Pulmonary: Reports: no symptoms Cardiovascular: Reports: No Symptoms Gastrointestinal: Reports: No symptoms Genitourinary: Reports: no symptoms Musculoskeletal: Reports: no symptoms Neurological: Reports: Pre-Existing Deficit. Denies: Confusion, Dizziness Psychiatric: Reports: no symptoms - Patient Data Vitals - most recent: Last Vital Signs Temp 97.1 F 02/05/17 06:41 Pulse 85 02/05/17 06:41 Resp 20 02/05/17 06:41 BP 137/89 02/05/17 08:00 Pulse Ox 98 02/05/17 06:41 Orthostatic Blood Pressure [ 105/67 Standing] Orthostatic Blood Pressure [ 131/78 Sitting] Orthostatic Blood Pressure [ 125/72 Supine] Weight - most recent: 219 lb 4.8 oz I&O - last 24 hours: Intake & Output 02/04/17 02/05/17 02/05/17 22:59 06:59 14:59 Intake Total 320 100 Balance 320 100 Med Orders - Current: Current Medications Acetaminophen (Tylenol Arthritis Pain) 650 mg PO Q8H PRN PRN Reason: Pain Aspirin (Halfprin) 81 mg PO DAILY [facility] Last Admin: 02/05/17 08:00 Dose: 81 mg Atorvastatin Calcium (Lipitor) 10 mg PO DAILY [facility] Last Admin: 02/05/17 08:01 Dose: 10 mg Docusate Sodium (Colace) 200 mg PO DAILY [facility] Last Admin: 02/05/17 08:00 Dose: 200 mg Furosemide (Lasix) 40 mg PO DAILY [facility] Last Admin: 02/05/17 08:01 Dose: 40 mg Losartan Potassium (Cozaar) 50 mg PO DAILY [facility] Last Admin: 02/05/17 08:00 Dose: 50 mg Magnesium Hydroxide (Milk Of Magnesia) 30 ml PO DAILY PRN PRN Reason: Constipation Last Admin: 02/03/17 14:53 Dose: 30 ml Meclizine HCl (Antivert) 25 mg PO Q6H PRN PRN Reason: Dizziness Multivitamins/Minerals (Ocuvite) 1 each PO DAILY [facility] Last Admin: 02/05/17 08:01 Dose: 1 each Potassium Chloride (Klor-Con 10) 10 meq PO DAILY [facility] Last Admin: 02/05/17 08:01 Dose: 10 meq Sertraline HCl (Zoloft) 25 mg PO DAILY [facility] Last Admin: 02/05/17 08:01 Dose: 25 mg Vitamin B Complex (Vitamin B Complex) 1 each PO DAILY [facility] Last Admin: 02/05/17 08:01 Dose: 1 each Warfarin Sodium (Coumadin) 6 mg PO DAILY [facility] Last Admin: 02/05/17 08:00 Dose: 6 mg Discontinued Medications Gadopentetate Dimeglumine (Magnevist) 15 ml IVPUSH ONETIME ONE Stop: 01/28/17 17:17 Last Admin: 01/28/17 19:26 Dose: Not Given Warfarin Sodium (Coumadin) 7.5 mg PO DAILY [facility] Last Admin: 01/30/17 13:38 Dose: Not Given Warfarin Sodium (Coumadin) 5 mg PO DAILY [facility] Last Admin: 01/31/17 11:27 Dose: Not Given - Exam Quality Assessment: No: supplemental oxygen General: alert, oriented, cooperative, no acute distress HEENT: No: Pupils equal (Right pupil slightly larger than left, reactive to light and accommodation, slight left eye vesiculation) Neck: supple Lungs: Clear to auscultation, Normal respiratory effort Cardiovascular: Regular Rate, Regular Rhythm Neurological: No: cranial nerves intact (Cochlear nerve palsy) Psy/Mental Status: alert, normal affect, normal mood - Problem List Review Problem List Initiated/Reviewed/Updated: Yes - Plan Plan:: This 81-year-old was initially admitted into acute care through the emergency department with complaints of all passing out and quite a bit of dizziness. Patient lives by himself in assisted living facility and does have a wet macular degeneration and history for TIAs stated that early the day prior to initial admission. he started having some lightheadedness and staggering around. He then went back to bed and woke up again upon standing he had some dizziness and that's when he fell to the floor. He did not hit his head EMS was notified because of his dizziness every time he seemed to move his head. He denied any nausea vomiting that was associated with his dizziness. At that time he did have an upper respiratory infection with mild cold symptoms with a cough however denies any hearing loss. He was admitted for further workup. he did have binocular vertical diplopia that was new on admission. Do to his unsteady gait, weakness, difficulty getting up from chair and the fact that he does live alone he was eventually placed in swing bed status for rehabilitation. 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 Consultation; see an stopperer assembler February 04, recommend lipid profile studies CODE STATUS; full code PT notes reviewed; very much improved, only slight diplopia residual. Pt. did not wear eye-patch to therapy. Pt. stated that he feels more comfortable/ balanced when standing up from his chair. Appears much improved and nearing optimal improvement; Likely DC next week with home health services. Pt. care plan is next week, Wednesday02/08/17 and will determine appropriate DC plans at that time. IMPRESSION/PLAN Dizziness vs vertigo; almost completely resolved, much improvement since initial admission, continue with physical therapy Diplopia; binocular, approximately 75% improved, continue with ocular exercises Macular degeneration, being followed by stopperer assembler Atrial fibrillation, chronic, fully anticoagulated, rate is controlled. History of TIA; on low-dose aspirin HFrEF, chronic, diastolic, EF50%; on ARB, on diuretics, now on low-sodium diet, on potassium supplementation Pulmonary hypertension, quite severe, pulmonary artery peak systolic pressure 67 mmHg Aortic stenosis; status post TAVR April 2016, on diuretics History of mitral valve replacement with mechanical valve; on anticoagulation Hypertension; primary controlled on ARB Venous insufficiency with chronic edema/lymphedema; on diuretics Hyperlipidemia, on Lipitor--however will assess fasting lipids in the a.m. Depression, on Zoloft Anemia; normocytic, normochromic with slightly elevated RDW with cell size varibility; very mild, Obstructive sleep apnea; with hx of bradycardia during the night on this admission; on CPAP. Pseudo-hypocalcemia; corrected with albumin Acid reflux; on PPI therapy Discharge planning; Appears much improved and nearing optimal improvement; Likely DC next week with home health services. Pt. care plan is next week, Wednesday02/08/17 and will determine appropriate DC plans at that time. The patient does go home he will need nursing, physical therapy and occupational therapy to help develop an in home therapy program for this patient to 2 diplopia and his gait imbalance. Physical therapy to help develop a home safety assessment instruction to help improving his strength and endurance. The patient will be home bound do to unsteady gait/ongoing diplopia however much improved--which all represents fall risk.
[2017-02-06 08:50] LABS: CHLORIDE,CL 105 mmol/L (98-115); SODIUM,NA 141 mmol/L (136-145)
[2017-02-06] MEDS: Docusate Sodium 100 MG Cap PO SCH (10:08)
[2017-02-06] MEDS: Warfarin 2 MG Tab PO SCH (10:12)
[2017-02-06] MEDS: Losartan 50 MG Tab PO SCH (10:12)
[2017-02-06] MEDS: Potassium Chloride 10 MEQ Tab.ER PO SCH (10:13)
[2017-02-06] MEDS: Aspirin 81 MG Tab.EC PO SCH (10:13)
[2017-02-06] MEDS: Furosemide 40 MG Tab PO SCH (10:14)
[2017-02-06] MEDS: Vitamin B Complex Tab PO SCH (10:14)
[2017-02-06] MEDS: atorvaSTATin 10 MG Tab PO SCH (10:14)
[2017-02-06] MEDS: Lutein/Minerals/Vitamins A, C & E Tab PO SCH (10:14)
[2017-02-06] MEDS: Sertraline 50 MG Tab PO SCH (10:20)
[2017-02-07] MEDS: Warfarin 2 MG Tab PO SCH (08:02)
[2017-02-07] MEDS: Docusate Sodium 100 MG Cap PO SCH (08:02)
[2017-02-07] MEDS: atorvaSTATin 10 MG Tab PO SCH (08:04)
[2017-02-07] MEDS: Vitamin B Complex Tab PO SCH (08:04)
[2017-02-07] MEDS: Losartan 50 MG Tab PO SCH (08:04)
[2017-02-07] MEDS: Potassium Chloride 10 MEQ Tab.ER PO SCH (08:04)
[2017-02-07] MEDS: Furosemide 40 MG Tab PO SCH (08:04)
[2017-02-07] MEDS: Lutein/Minerals/Vitamins A, C & E Tab PO SCH (08:04)
[2017-02-07] MEDS: Aspirin 81 MG Tab.EC PO SCH (08:04)
[2017-02-07] MEDS: Sertraline 50 MG Tab PO SCH (08:07)
[2017-02-08] MEDS: atorvaSTATin 10 MG Tab PO SCH (08:41)
[2017-02-08] MEDS: Vitamin B Complex Tab PO SCH (08:41)
[2017-02-08] MEDS: Lutein/Minerals/Vitamins A, C & E Tab PO SCH (08:41)
[2017-02-08] MEDS: Warfarin 2 MG Tab PO SCH (08:42)
[2017-02-08] MEDS: Losartan 50 MG Tab PO SCH (08:42)
[2017-02-08] MEDS: Docusate Sodium 100 MG Cap PO SCH (08:42)
[2017-02-08] MEDS: Potassium Chloride 10 MEQ Tab.ER PO SCH (08:42)
[2017-02-08] MEDS: Aspirin 81 MG Tab.EC PO SCH (08:42)
[2017-02-08] MEDS: Furosemide 40 MG Tab PO SCH (08:42)
[2017-02-08] MEDS: Sertraline 50 MG Tab PO SCH (08:45)
[2017-02-09 06:14] VITALS: BP 129/89
[2017-02-09] MEDS: Lutein/Minerals/Vitamins A, C & E Tab PO SCH (08:09)
[2017-02-09] MEDS: Sertraline 50 MG Tab PO SCH (08:09)
[2017-02-09] MEDS: Potassium Chloride 10 MEQ Tab.ER PO SCH (08:09)
[2017-02-09] MEDS: Aspirin 81 MG Tab.EC PO SCH (08:09)
[2017-02-09] MEDS: Vitamin B Complex Tab PO SCH (08:09)
[2017-02-09] MEDS: Losartan 50 MG Tab PO SCH (08:10)
[2017-02-09] MEDS: atorvaSTATin 10 MG Tab PO SCH (08:10)
[2017-02-09] MEDS: Furosemide 40 MG Tab PO SCH (08:10)
[2017-02-09] MEDS: Docusate Sodium 100 MG Cap PO SCH (08:10)
[2017-02-09] MEDS: Warfarin 2 MG Tab PO SCH (08:11)
--- NOTE | 2017-02-10 09:28 | DISCH ---
ADMITTING DIAGNOSIS: Dizziness, vertigo, double vision, unsteady gait. FINAL DIAGNOSES: 1. Vertigo, much improved. 2. Diplopia, much improved. 3. Gait steadiness, much improved. BRIEF HISTORY AND ESSENTIAL PHYSICAL FINDINGS: This is an 81-year-old gentleman who was at home with a history of macular degeneration, having very dizzy spells. He was unable to walk. He actually did fall down. He was also using a walker and he was very unsteady with his walker. He was also having some problems with his vision with his macular degeneration and some double vision. The patient then was admitted to the hospital at that time. SIGNIFICANT LABS XRAYS AND CONSULTATION FINDINGS: The patient's last lab work that he had while he was hospitalized back on 02/06/2017, he had a CBC which showed a white count within normal range at 6.1, hemoglobin was 12.9, platelet count was 139. The patient's last INR that was obtained in the hospital on 02/09/2017 which was within therapeutic range at 2.5. The patient's last chemistry panel that was obtained on 02/06/2017 was unremarkable except for BUN was slightly elevated at 32. The patient did have an LDL obtained that day which was 41, HDL was 54. The patient did have multiple imaging, scans done while he was in the hospital. 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 The [place] [facility] [place] was normal. No significant stenosis. No aneurysm or atrial abnormality identified. CT of the head the patient had, the radiologist's report did read mild generalized atrophy and chronic small vessel ischemic changes; however, no acute findings.Trochlear nerve palsy and lacunar infarction with the MRI of the brain showed per radiologist the patient did have consultation of facs teacher detective private eye on 02/04/2017 in [place]. COURSE IN HOSPITAL WITH COMPLICATIONS IF ANY: The patient was admitted from inpatient to swing bed status. He was seen by Physical therapy for vestibular rehab and strengthening and gait strength and conditioning. He did improve. After seeing specialist in [place], his double vision did improve. He had worn an eye patch at times for the double vision. CONDITION TREATMENT AND FINAL DISPOSITION ON DISCHARGE AND PROGNOSIS: Condition is stable. Final disposition will be home which is an assisted living. IMPRESSION AND PLAN: 1. Vertigo. Plan: The patient had been seen in physical therapy, much improved, so continue with physical therapy at home. He can take meclizine as needed for the dizziness. 2. Diplopia. Plan: This is much improved, probably almost totally resolved, 80% better. 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 He also does have a history of macular degeneration. 3. Chronic atrial fibrillation. Plan: Continue with Coumadin. The patient's INR was therapeutic. He has been rate controlled. 4. History of TIAs. Plan: Continue with baby aspirin of 81 mg daily. 5. History of congestive heart failure with pulmonary hypertension. Plan: Continue with Lasix 40 mg daily along with potassium supplement daily. 6. Hypertension. Plan: This has been controlled. Continue with losartan 50 mg daily. 7. History of depression. Plan: Continue with Zoloft 25 mg daily. 8. Hyperlipidemia. Plan: Continue with atorvastatin 10 mg daily. 9. History of aortic stenosis. Plan: The patient did go under an aortic valve repair back in 04/2016, seems to be doing well. He does have a murmur on exam. 10.History of mitral valve repair, back in 1978. 11.Obstructive sleep apnea. Plan: Continue with CPAP mask at night. OVERALL PLAN: The patient can be sent home today. He will have home health care nursing to see the patient at least once a week. He will continue with home physical therapy also. The patient will follow up in the clinic in one week with primary care provider. /[id number]/MODL MTDD
== END 2017-02-09 12:50 | disposition home or self-care (01) | DRG 947 ==
LOC: KA.MS 11:00
PROVIDERS: ADMIT Nurse Practitioner Family; ATTEND Nurse Practitioner Family
DX: R53.1 Weakness (principal); I63.9 Cerebral infarction, unspecified; I50.32 Chronic diastolic (congestive) heart failure; I48.91 Unspecified atrial fibrillation; E78.00 Pure hypercholesterolemia, unspecified; I10 Essential (primary) hypertension; I27.2 Other secondary pulmonary hypertension; F32.9 Major depressive disorder, single episode, unspecified; H35.3290 Exudative age-related macular degeneration, unspecified eye, stage unspecified; I87.2 Venous insufficiency (chronic) (peripheral); E78.5 Hyperlipidemia, unspecified; D64.9 Anemia, unspecified; G47.33 Obstructive sleep apnea (adult) (pediatric); E83.51 Hypocalcemia; K21.9 Gastro-esophageal reflux disease without esophagitis; H53.2 Diplopia; Z86.73 Personal history of transient ischemic attack (TIA), and cerebral infarction without residual deficits; Z88.0 Allergy status to penicillin; Z88.8 Allergy status to other drugs, medicaments and biological substances; Z79.82 Long term (current) use of aspirin; Z79.01 Long term (current) use of anticoagulants; Z79.899 Other long term (current) drug therapy; Z95.2 Presence of prosthetic heart valve; Z87.891 Personal history of nicotine dependence
CPT/HCPCS: 36415; 36416; 70553; 80048; 80061; 85025; 85610; 97110-GP; 97162-GP; 97530-GP; 97537-GP; A9270-GY; A9579

== ENCOUNTER 2018-03-11 17:52 | Emergency (ER) | payer BC, MEDICARE ==
[2018-03-11] MEDS ORDERED: Diphtheria,Pertussis(Acell),Tetanus Vaccine 0.5 ML SDV IM ONE (18:02)
[2018-03-11 18:03] VITALS: BP 174/68
--- NOTE | 2018-03-11 18:03 | EDM.PDOC ---
ED HPI GENERAL MEDICAL PROBLEM - General Chief Complaint: Head Injury Stated Complaint: FALL-abrasion to occipital lobe Time Seen by Provider: 03/11/18 18:00 Source of Information: Reports: Patient, EMS History Limitations: Reports: No Limitations - History of Present Illness INITIAL COMMENTS - FREE TEXT/NARRATIVE: 82 YO WM presents to ER by EMS after fall at home. Pt states he was pulling a calender off the wall and he stumbled losing his balance and falling backwards on the floor. Pt denies any loss of consciousness. Pt reports he hit the back of his head on the oven drawer. Pt was unable to get up after the fall due to chronic lower extremity weakness due to age. Pt denies any other injuries. Pt denies headache or neck pain. Pt is on coumadin for Atrial fibrillation. Pt denies chest pain or shortness of breath. Onset: Sudden Onset Date: 03/11/18 Duration: Hour(s): (1) Location: Reports: Head Severity: Mild Improves with: Reports: None Worsens with: Reports: None Associated Symptoms: Reports: No Other Symptoms - Related Data Allergies Allergy/AdvReac Type Severity Reaction Status Date / Time Penicillins Allergy Swelling Verified 03/11/18 18:00 vancomycin Allergy Anaphylactic Verified 03/11/18 18:00 Shock Home Meds: Home Meds Acetaminophen [Tylenol Arthritis] 650 mg PO Q6HR PRN 01/21/17 [History] Aspirin [Lo-Dose Aspirin EC] 81 mg PO DAILY 01/21/17 [History] Docusate Sodium [Colace] 200 mg PO DAILY 01/21/17 [History] Furosemide 40 mg PO DAILY 01/21/17 [History] Losartan [Cozaar] 50 mg PO DAILY 01/21/17 [History] Potassium Chloride [Klor-Con M20] 20 meq PO BID 01/21/17 [History] Sertraline [Zoloft] 25 mg PO DAILY 01/21/17 [History] Vit A/Vit C/Vit E/Zinc/Copper [Preservision] 1 cap PO DAILY 01/21/17 [History] Vitamin B Complex 1 each PO DAILY 01/21/17 [History] Warfarin [Coumadin] 5 mg PO DAILY 01/21/17 [History] atorvaSTATin Calcium [Atorvastatin Calcium] 10 mg PO DAILY 01/21/17 [History] Past Medical History HEENT History: Reports: Cataract, Impaired Vision, Macular Degeneration Cardiovascular History: Reports: Afib, Heart Valve Replacement, High Cholesterol , Hypertension, Pulmonary Hypertension Respiratory History: Reports: Sleep Apnea Gastrointestinal History: Reports: Chronic Constipation Genitourinary History: Reports: None Musculoskeletal History: Reports: Fracture Neurological History: Reports: TIA, Vertigo Psychiatric History: Reports: Depression Endocrine/Metabolic History: Reports: Obesity/BMI 30+ Hematologic History: Reports: None - Infectious Disease History Infectious Disease History: Reports: Chicken Pox, Mumps, Pertussis (Whooping Cough), Rheumatic Fever - Past Surgical History HEENT Surgical History: Reports: Cataract Surgery, Tonsillectomy, Other (See Below) Cardiovascular Surgical History: Reports: Valve Replacement Social & Family History - Family History Family Medical History: Noncontributory - Tobacco Use Smoking Status *Q: Former Smoker Years of Tobacco use: 20 Packs/Tins Daily: 1 Used Tobacco, but Quit: Yes Month/Year Tobacco Last Used: March Second Hand Smoke Exposure: No - Caffeine Use Caffeine Use: Reports: Soda - Recreational Drug Use Recreational Drug Use: No ED ROS GENERAL - Review of Systems Review Of Systems: See Below Constitutional: Reports: No Symptoms HEENT: Reports: No Symptoms Respiratory: Reports: No Symptoms Cardiovascular: Reports: No Symptoms Endocrine: Reports: No Symptoms GI/Abdominal: Reports: No Symptoms : Reports: No Symptoms Musculoskeletal: Reports: No Symptoms Skin: Reports: Wound (occipital scalp) Neurological: Reports: No Symptoms. Denies: Confusion, Dizziness, Headache, Numbness, Paresthesia, Pre-Existing Deficit, Seizure, Syncope, Tingling, Tremors , Trouble Speaking, Difficulty Walking, Weakness, Change in Speech, Gait Disturbance Psychiatric: Reports: No Symptoms Hematologic/Lymphatic: Reports: No Symptoms Immunologic: Reports: No Symptoms ED EXAM, HEAD INJURY - Physical Exam Exam: See Below Exam Limited By: No Limitations General Appearance: Alert, WD/WN, No Apparent Distress Head: Normocephalic, Scalp Swelling, Scalp Abrasions, Scalp Hematoma. No: Scalp Lacerations, Active Bleeding, Powell's Sign, Raccoon Eyes Nexus Criteria: No: Posterior, Midline Cervical Tenderness, Evidence of Intoxication, Altered Level of Consciousness, Focal Neurological Deficit, Painful Distraction Injuries Eyes: Bilateral Eye: EOMI, PERRL Ears: Normal External Exam, Normal Canal, Hearing Grossly Normal, Normal TMs Nose: Normal Inspection, Normal Mucousa, No Blood Throat/Mouth: Normal Inspection, Normal Lips, Normal Teeth, Normal Gums, Normal Oropharynx, Normal Voice, No Airway Compromise Neck: Non-Tender, Full Range of Motion, Normal Alignment, Normal Inspection Respiratory: No Respiratory Distress, Lungs Clear, Normal Breath Sounds, No Accessory Muscle Use, Chest Non-Tender Cardiovascular: Normal Peripheral Pulses, Regular Rate, Rhythm, No Edema, No Gallop, No JVD, No Murmur, No Rub GI/Abdominal Exam: Normal Bowel Sounds, Soft, Non-Tender, No Organomegaly, No Distention, No Abnormal Bruit, No Mass Back Exam: Full Range of Motion, Normal Inspection, NT Extremities: Normal Inspection, Normal Range of Motion, Non-Tender, No Pedal Edema, Normal Capillary Refill Neurologic: computer system technician II-XII nml As Tested, No Motor/Sensory Deficits, Alert, Normal Mood/Affect, Oriented x 3 Skin: Normal Color, Warm/Dry - Matthew Coma Score Best Eye Response (Matthew): (4) Open Spontaneously Best Verbal Response (Matthew): (5) Oriented Best Motor Response (Matthew): (6) Obeys Commands Course - Vital Signs Last Recorded V/S: Last Vital Signs Temp 36.6 C 03/11/18 18:01 Pulse 70 03/11/18 18:01 Resp 16 03/11/18 18:01 BP 174/68 H 03/11/18 18:01 Pulse Ox 93 L 03/11/18 18:01 - Orders/Labs/Meds Orders: Active Orders 24 hr Category Date Time Status Vaccines to be Administered [RC] PER UNIT ROUTINE Care 03/11/18 18:02 Active Head wo Cont [CT] Stat Exams 03/11/18 18:02 Taken Meds: Medications Discontinued Medications Generic Name Dose Route Start Last Admin Trade Name Freq PRN Reason Stop Dose Admin Diphtheria/Tetanus/Acell Pertussis 0.5 ml 03/11/18 18:02 03/11/18 18:33 Adacel IM 03/11/18 18:03 0.5 ml .ONCE ONE Administration - Radiology Interpretation Free Text/Narrative:: CT head- NAD Departure - Departure Time of Disposition: 18:47 Disposition: Home, Self-Care 01 Condition: Good Clinical Impression: Contusion of scalp Qualifiers: Encounter type: initial encounter Qualified Code(s): S00.03XA - Contusion of scalp, initial encounter Scalp hematoma Qualifiers: Encounter type: initial encounter Qualified Code(s): S00.03XA - Contusion of scalp, initial encounter Head injury due to trauma Qualifiers: Encounter type: initial encounter Qualified Code(s): S09.90XA - Unspecified injury of head, initial encounter - Discharge Information Instructions: Hematoma, [id number], Head Injury, Adult, [id number], Facial or Scalp Contusion, [id number] Referrals: Jane Prado PA-C [Primary Care Provider] - Forms: ED Department Discharge - My Orders Last 24 Hours: My Active Orders 03/11/18 18:02 Vaccines to be Administered [RC] PER UNIT ROUTINE Head wo Cont [CT] Stat - Assessment/Plan Last 24 Hours: My Active Orders 03/11/18 18:02 Vaccines to be Administered [RC] PER UNIT ROUTINE Head wo Cont [CT] Stat Assessment:: 1. Head injury without loss of consciousness or headache 2. scalp contusion Plan: 1. discharge home 2. wound care instructions given 3. last INR check 2 days ago 3.0 4. follow up with PCP for further evaluation and treatment 5. return to ER for worsening symptoms
== END 2018-03-11 19:00 | disposition home or self-care (01) ==
LOC: KA.ED 17:52
DX: S00.03XA Contusion of scalp, initial encounter (principal); S09.90XA Unspecified injury of head, initial encounter; E78.00 Pure hypercholesterolemia, unspecified; I10 Essential (primary) hypertension; Z88.0 Allergy status to penicillin; Z88.1 Allergy status to other antibiotic agents; Z79.82 Long term (current) use of aspirin; Z79.899 Other long term (current) drug therapy; Z79.01 Long term (current) use of anticoagulants; Z86.73 Personal history of transient ischemic attack (TIA), and cerebral infarction without residual deficits; Z87.891 Personal history of nicotine dependence; Z23 Encounter for immunization; W01.0XXA Fall on same level from slipping, tripping and stumbling without subsequent striking against object, initial encounter; Y92.009 Unspecified place in unspecified non-institutional (private) residence as the place of occurrence of the external cause
CPT/HCPCS: 70450; 90471; 90715; 99284

== ENCOUNTER 2018-03-13 19:35 | Emergency (ER) | payer BC, MEDICARE ==
[2018-03-13 19:49] VITALS: BP 118/62
--- NOTE | 2018-03-13 20:10 | EDM.PDOC ---
ED HPI GENERAL MEDICAL PROBLEM - General Chief Complaint: Upper Extremity Injury/Pain Stated Complaint: RIGHT ARM BRUISING Time Seen by Provider: 03/13/18 19:35 Source of Information: Reports: Patient History Limitations: Reports: No Limitations - History of Present Illness INITIAL COMMENTS - FREE TEXT/NARRATIVE: 82 YO WM presents to ER with bruising to right upper arm. Pt was seen 2 days ago for a fall at home. Pt lost his balance and struck the back of his head on oven drawer. At the time, pt denied anyother injury. Pt is on Coumadin for Atrial Fib and had his INR checked last week- 3.0 per patient. Pt reports mild pain in his right bicep but has full range of motion to right shoulder and elbow. Onset Date: 03/11/18 Duration: Day(s): (2) Location: Reports: Upper Extremity, Right Quality: Reports: Dull Severity: Mild Improves with: Reports: Rest Worsens with: Reports: Movement Associated Symptoms: Reports: No Other Symptoms Right Upper Arm Pain Score (Numeric/FACES): 3 - Related Data Allergies Allergy/AdvReac Type Severity Reaction Status Date / Time Penicillins Allergy Swelling Verified 03/13/18 19:49 vancomycin Allergy Anaphylactic Verified 03/13/18 19:49 Shock Home Meds: Home Meds Acetaminophen [Tylenol Arthritis] 650 mg PO Q6HR PRN 01/21/17 [History] Aspirin [Lo-Dose Aspirin EC] 81 mg PO DAILY 01/21/17 [History] Docusate Sodium [Colace] 200 mg PO DAILY 01/21/17 [History] Furosemide 40 mg PO DAILY 01/21/17 [History] Losartan [Cozaar] 50 mg PO DAILY 01/21/17 [History] Potassium Chloride [Klor-Con M20] 20 meq PO BID 01/21/17 [History] Sertraline [Zoloft] 25 mg PO DAILY 01/21/17 [History] Vit A/Vit C/Vit E/Zinc/Copper [Preservision] 1 cap PO DAILY 01/21/17 [History] Vitamin B Complex 1 each PO DAILY 01/21/17 [History] Warfarin [Coumadin] 5 mg PO DAILY 01/21/17 [History] atorvaSTATin Calcium [Atorvastatin Calcium] 10 mg PO DAILY 01/21/17 [History] Past Medical History HEENT History: Reports: Cataract, Impaired Vision, Macular Degeneration Cardiovascular History: Reports: Afib, Heart Valve Replacement, High Cholesterol , Hypertension, Pulmonary Hypertension Respiratory History: Reports: Sleep Apnea Gastrointestinal History: Reports: Chronic Constipation Genitourinary History: Reports: None Musculoskeletal History: Reports: Fracture Neurological History: Reports: TIA, Vertigo Psychiatric History: Reports: Depression Endocrine/Metabolic History: Reports: Obesity/BMI 30+ Hematologic History: Reports: None - Infectious Disease History Infectious Disease History: Reports: Chicken Pox, Mumps, Pertussis (Whooping Cough), Rheumatic Fever - Past Surgical History HEENT Surgical History: Reports: Cataract Surgery, Tonsillectomy, Other (See Below) Cardiovascular Surgical History: Reports: Valve Replacement Social & Family History - Family History Family Medical History: Noncontributory - Tobacco Use Smoking Status *Q: Former Smoker Years of Tobacco use: 20 Packs/Tins Daily: 1 Used Tobacco, but Quit: Yes Month/Year Tobacco Last Used: March Second Hand Smoke Exposure: No - Caffeine Use Caffeine Use: Reports: Soda - Recreational Drug Use Recreational Drug Use: No Review of Systems - Review of Systems Review Of Systems: See Below Constitutional: Reports: No Symptoms Eyes: Reports: No Symptoms Ears: Reports: No Symptoms Nose: Reports: No Symptoms Mouth/Throat: Reports: No Symptoms Respiratory: Reports: No Symptoms Cardiovascular: Reports: No Symptoms GI/Abdominal: Reports: No Symptoms Genitourinary: Reports: No Symptoms Musculoskeletal: Reports: Arm Pain (right) Skin: Reports: Bruising (right upper arm) Neurological: Reports: No Symptoms Psychiatric: Reports: No Symptoms ED EXAM, GENERAL - Physical Exam Exam: See Below Exam Limited By: No Limitations General Appearance: Alert, WD/WN, No Apparent Distress Head: Normocephalic. No: Facial Swelling, Facial Tenderness Neck: Normal Inspection, Supple, Non-Tender, Full Range of Motion Respiratory/Chest: No Respiratory Distress, Lungs Clear, Normal Breath Sounds, No Accessory Muscle Use, Chest Non-Tender Cardiovascular: Normal Peripheral Pulses, Regular Rate, Rhythm, No Edema, No Gallop, No JVD, No Murmur, No Rub GI/Abdominal: Normal Bowel Sounds, Soft, Non-Tender, No Organomegaly, No Distention, No Abnormal Bruit, No Mass Back Exam: Normal Inspection, Full Range of Motion, NT Extremities: Arm Pain. No: Mottled, Pallor, Redness Neurological: Alert, Oriented, CN II-XII Intact, Normal Cognition, Normal Gait, Normal Reflexes, No Motor/Sensory Deficits Psychiatric: Normal Affect, Normal Mood Skin Exam: Warm, Dry, Intact, Normal Color, No Rash Lymphatic: No Adenopathy Course - Vital Signs Last Recorded V/S: Last Vital Signs Temp 36.9 C 03/13/18 19:45 Pulse 70 03/13/18 19:45 Resp 16 03/13/18 19:45 BP 118/62 03/13/18 19:45 Pulse Ox 91 L 03/13/18 19:45 - Orders/Labs/Meds Orders: Active Orders 24 hr Category Date Time Status Humerus Rt [CR] Stat Exams 03/13/18 19:53 Ordered Shoulder Comp Rt [CR] Stat Exams 03/13/18 19:37 Ordered INR,PT,PROTHROMBIN TIME [COAG] Stat Lab 03/13/18 20:30 Results PTT,PARTIAL THROMBOPLSTIN TIME [COAG] Stat Lab 03/13/18 20:30 Results Labs: Laboratory Tests 03/13/18 Range/Units 20:30 PT 29.1 H (8.9-11.4) SEC INR 2.9 H (0.9-1.1) - Radiology Interpretation Free Text/Narrative:: right shoulder- NAD right humerus- NAD Departure - Departure Time of Disposition: 21:06 Disposition: Home, Self-Care 01 Condition: Good Clinical Impression: Traumatic ecchymosis of right upper arm Qualifiers: Encounter type: initial encounter Qualified Code(s): S40.021A - Contusion of right upper arm, initial encounter - Discharge Information Instructions: Contusion, [id number], Hematoma, [id number] Referrals: Jaiden Putnam, SUPERVISOR OF COMM[employer]ICATIONS [Primary Care Provider] - Forms: ED Department Discharge Additional Instructions: 1. heating pad to right arm 2. tylenol for pain PRN 3. discharge home 4. follow up with clinic for further evaluation and treatment 5. return to ER for worsening symptoms - My Orders Last 24 Hours: My Active Orders 03/13/18 19:37 Shoulder Comp Rt [CR] Stat 03/13/18 19:53 Humerus Rt [CR] Stat 03/13/18 20:30 INR,PT,PROTHROMBIN TIME [COAG] Stat PTT,PARTIAL THROMBOPLSTIN TIME [COAG] Stat - Assessment/Plan Last 24 Hours: My Active Orders 03/13/18 19:37 Shoulder Comp Rt [CR] Stat 03/13/18 19:53 Humerus Rt [CR] Stat 03/13/18 20:30 INR,PT,PROTHROMBIN TIME [COAG] Stat PTT,PARTIAL THROMBOPLSTIN TIME [COAG] Stat Assessment:: 1. right arm bruising from fall Plan: 1. heating pad to right arm 2. tylenol for pain PRN 3. discharge home 4. follow up with clinic for further evaluation and treatment 5. return to ER for worsening symptoms
== END 2018-03-13 21:25 | disposition home or self-care (01) ==
LOC: KA.ED 19:35
DX: S40.021A Contusion of right upper arm, initial encounter (principal); E78.00 Pure hypercholesterolemia, unspecified; I10 Essential (primary) hypertension; Z88.1 Allergy status to other antibiotic agents; Z88.0 Allergy status to penicillin; Z79.82 Long term (current) use of aspirin; Z79.899 Other long term (current) drug therapy; Z79.01 Long term (current) use of anticoagulants; Z87.891 Personal history of nicotine dependence; W19.XXXA Unspecified fall, initial encounter; Y92.009 Unspecified place in unspecified non-institutional (private) residence as the place of occurrence of the external cause
CPT/HCPCS: 36415; 73030-RT; 73060-RT; 85610; 85730; 99283

== ENCOUNTER 2019-02-13 12:10 | Inpatient (IN) | payer MEDICARE, BC ==
[2019-02-13] MEDS ORDERED: Furosemide 40 MG/4 ML VIAL IVPUSH ONE (13:10)
[2019-02-13] MEDS ORDERED: Aspirin 81 MG Tab.Chew PO ONE (16:07)
[2019-02-13] MEDS ORDERED: Nitroglycerin 0.4 MG Tab.SL SL PRN (16:24)
[2019-02-13] MEDS ORDERED: Lidocaine 2% 100 MG/5 ML Syringe IVPUSH PRN (16:24)
[2019-02-13] MEDS ORDERED: Atropine 0.1 MG/ML 10 ML Syringe IVPUSH PRN (16:24)
[2019-02-13] MEDS ORDERED: EPINEPHrine 1:10,000 1 MG/10 ML Syringe IVPUSH PRN (16:24)
[2019-02-13] MEDS ORDERED: Calcium Polycarbophil 625 MG Tab PO PRN (17:31)
[2019-02-13] MEDS ORDERED: Acetaminophen 650 MG Tab.ER PO PRN (17:31)
[2019-02-13] MEDS ORDERED: Nystatin Topical Powder 15 GM Bottle TOP PRN (17:31)
[2019-02-13] MEDS ORDERED: Polyethylene Glycol 3350 Powder 238 GM Bot PO PRN (17:31)
--- NOTE | 2019-02-13 17:31 | PCM.SN ---
- Free Text/Narrative Note: Consulted with Dr. Bauer, senior grants officer at [facility], regarding anticoagulation options for patient's NSTEMI. She advised continuing to trend troponins to determine if true NSTEMI versus CHF. Given no chest pain and mildly elevated troponin at 0.11 she advised no further anticoagulation. INR therapeutic with warfarin. Treatment will depend on troponin and risks versus benefits of DAPT discussion with patient and family. If he elects to do DAPT she would advise warfarin with plavix and to stop aspirin.
[2019-02-13] MEDS ORDERED: Warfarin 2.5 MG Tab PO SCH (17:45)
[2019-02-13] MEDS ORDERED: Non-Formulary Medication 1 Each (Azelastine Hcl [Azelastine Hcl] 2 SPRAY) NS SCH (17:45)
[2019-02-13] MEDS: Melatonin 3 MG Tab PO PRN (20:24)
[2019-02-13] MEDS: Cholecalciferol (Vitamin D3) 1,000 Unit Tab PO SCH (20:24)
[2019-02-13] MEDS: Fluticasone Propionate Nasal Spray 16 GM Bottle NASBOTH SCH (20:24)
[2019-02-13] MEDS: Sertraline 50 MG Tab PO SCH (20:24)
[2019-02-13] MEDS: Gabapentin 300 MG Cap PO SCH (20:24)
[2019-02-14 08:14] LABS: ANION GAP 12.6 mmol/L (5-15)
[2019-02-14] MEDS: Fluticasone Propionate Nasal Spray 16 GM Bottle NASBOTH SCH ×2 (08:46→20:56)
[2019-02-14] MEDS: atorvaSTATin 10 MG Tab PO SCH (08:46)
[2019-02-14] MEDS: Aspirin 81 MG Tab.EC PO SCH (08:46)
[2019-02-14] MEDS: ALPRAZolam 0.25 MG Tab PO SCH (08:46)
[2019-02-14] MEDS: Loratadine 10 MG Tab PO SCH (08:46)
[2019-02-14] MEDS: Vitamin B Complex Tab PO SCH (08:46)
[2019-02-14] MEDS: Losartan 50 MG Tab PO SCH (08:46)
[2019-02-14] MEDS ORDERED: Biotin/Folic Acid/Vitamin C/Vitamin B Complex Tab PO SCH (09:00)
--- NOTE | 2019-02-14 11:38 | PCM.PN ---
- General Info Date of Service: 02/14/19 Functional Status: Reports: Pain Controlled, Tolerating Diet, Urinating. Denies : Ambulating - Review of Systems General: Reports: No Symptoms HEENT: Reports: Other. Denies: Dysphasia Pulmonary: Reports: Shortness of Breath, Cough, Sputum Cardiovascular: Reports: Edema, Other. Denies: Chest Pain, Orthopnea, PND Gastrointestinal: Reports: No Symptoms Genitourinary: Reports: No Symptoms Musculoskeletal: Reports: No Symptoms Skin: Reports: No Symptoms Neurological: Reports: No Symptoms Psychiatric: Denies: Confusion, Agitation - Patient Data Vitals - Most Recent: Last Vital Signs Temp 97.2 F 02/14/19 06:35 Pulse 60 02/14/19 06:35 Resp 24 H 02/14/19 06:35 BP 146/66 H 02/14/19 08:46 Pulse Ox 95 02/14/19 07:35 Weight - Most Recent: 239 lb 1.6 oz I&O - Last 24 Hours: Intake & Output 02/13/19 02/14/19 02/14/19 22:59 06:59 14:59 Intake Total 300 50 Output Total 1100 300 Balance -800 -250 Lab Results Last 24 Hours: Laboratory Results - last 24 hr 02/13/19 02/13/19 02/13/19 Range/Units 14:30 14:30 18:30 WBC (5.00-10.00) 10^3/uL RBC (4.50-6.00) 10^6/uL Hgb (13.0-17.0) g/dL Hct (40.0-52.0) % MCV (82.0-92.0) fL MCH (27.0-31.0) pg MCHC (32.0-36.0) g/dL RDW (11.5-14.5) % Plt Count (150-400) 10^3/uL MPV (7.4-10.4) fL Immature Gran % (Auto) (0.0-5.0) % Neut % (Auto) (50.0-70.0) % Lymph % (Auto) (20.0-40.0) % Beauregard % (Auto) (2.0-8.0) % Eos % (Auto) (1.0-3.0) % Baso % (Auto) (0.0-1.0) % Immature Gran # (Auto) (0.00-0.50) 10^3/uL Neut # (Auto) (2.50-7.00) 10^3/uL Lymph # (Auto) (1.00-4.00) 10^3/uL Beauregard # (Auto) (0.10-0.80) 10^3/uL Eos # (Auto) (0.10-0.30) 10^3/uL Baso # (Auto) (0.00-0.10) 10^3/uL PT 25.6 H D (8.9-11.4) SEC INR 2.6 H (0.9-1.1) Sodium (136-145) mmol/L Potassium (3.3-5.3) mmol/L Chloride (98-115) mmol/L Carbon Dioxide (21.0-32.0) mmol/L Anion Gap (5-15) mmol/L BUN (6-25) mg/dL Creatinine (0.51-1.17) mg/dL Est Cr Clr Drug Dosing mL/min Estimated GFR (MDRD) mL/min Glucose (75 - 99) mg/dL Calcium (8.7-10.3) mg/dL Troponin I 0.11 H* 0.10 H* (0.00-0.070) ng/mL 02/14/19 02/14/19 02/14/19 Range/Units 00:10 07:40 07:40 WBC 6.64 (5.00-10.00) 10^3/uL RBC 4.04 L (4.50-6.00) 10^6/uL Hgb 12.7 L (13.0-17.0) g/dL Hct 40.4 (40.0-52.0) % MCV 100.0 H D (82.0-92.0) fL MCH 31.4 H (27.0-31.0) pg MCHC 31.4 L (32.0-36.0) g/dL RDW 18.2 H (11.5-14.5) % Plt Count 132 L (150-400) 10^3/uL MPV 10.2 (7.4-10.4) fL Immature Gran % (Auto) 0.3 (0.0-5.0) % Neut % (Auto) 80.7 H (50.0-70.0) % Lymph % (Auto) 8.9 L (20.0-40.0) % Beauregard % (Auto) 6.8 (2.0-8.0) % Eos % (Auto) 2.7 (1.0-3.0) % Baso % (Auto) 0.6 (0.0-1.0) % Immature Gran # (Auto) 0.02 (0.00-0.50) 10^3/uL Neut # (Auto) 5.36 (2.50-7.00) 10^3/uL Lymph # (Auto) 0.59 L (1.00-4.00) 10^3/uL Beauregard # (Auto) 0.45 (0.10-0.80) 10^3/uL Eos # (Auto) 0.18 (0.10-0.30) 10^3/uL Baso # (Auto) 0.04 (0.00-0.10) 10^3/uL PT (8.9-11.4) SEC INR (0.9-1.1) Sodium 145 (136-145) mmol/L Potassium 5.6 H (3.3-5.3) mmol/L Chloride 105 (98-115) mmol/L Carbon Dioxide 33.0 H (21.0-32.0) mmol/L Anion Gap 12.6 (5-15) mmol/L BUN 41 H (6-25) mg/dL Creatinine 1.58 H (0.51-1.17) mg/dL Est Cr Clr Drug Dosing 34.80 mL/min Estimated GFR (MDRD) 42 mL/min Glucose 111 H (75 - 99) mg/dL Calcium 8.8 (8.7-10.3) mg/dL Troponin I 0.10 H* (0.00-0.070) ng/mL 02/14/19 Range/Units 07:40 WBC (5.00-10.00) 10^3/uL RBC (4.50-6.00) 10^6/uL Hgb (13.0-17.0) g/dL Hct (40.0-52.0) % MCV (82.0-92.0) fL MCH (27.0-31.0) pg MCHC (32.0-36.0) g/dL RDW (11.5-14.5) % Plt Count (150-400) 10^3/uL MPV (7.4-10.4) fL Immature Gran % (Auto) (0.0-5.0) % Neut % (Auto) (50.0-70.0) % Lymph % (Auto) (20.0-40.0) % Beauregard % (Auto) (2.0-8.0) % Eos % (Auto) (1.0-3.0) % Baso % (Auto) (0.0-1.0) % Immature Gran # (Auto) (0.00-0.50) 10^3/uL Neut # (Auto) (2.50-7.00) 10^3/uL Lymph # (Auto) (1.00-4.00) 10^3/uL Beauregard # (Auto) (0.10-0.80) 10^3/uL Eos # (Auto) (0.10-0.30) 10^3/uL Baso # (Auto) (0.00-0.10) 10^3/uL PT 25.7 H (8.9-11.4) SEC INR 2.6 H (0.9-1.1) Sodium (136-145) mmol/L Potassium (3.3-5.3) mmol/L Chloride (98-115) mmol/L Carbon Dioxide (21.0-32.0) mmol/L Anion Gap (5-15) mmol/L BUN (6-25) mg/dL Creatinine (0.51-1.17) mg/dL Est Cr Clr Drug Dosing mL/min Estimated GFR (MDRD) mL/min Glucose (75 - 99) mg/dL Calcium (8.7-10.3) mg/dL Troponin I (0.00-0.070) ng/mL Med Orders - Current: Current Medications Acetaminophen (Tylenol Arthritis Pain) 650 mg PO BEDTIME PRN PRN Reason: Pain Alprazolam (Xanax) 0.25 mg PO DAILY [facility] Last Admin: 02/14/19 08:46 Dose: 0.25 mg Aspirin (Halfprin) 81 mg PO DAILY [facility] Last Admin: 02/14/19 08:46 Dose: 81 mg Atorvastatin Calcium (Lipitor) 10 mg PO DAILY [facility] Last Admin: 02/14/19 08:46 Dose: 10 mg Atropine Sulfate (Atropine 0.1 Mg/Ml) 0 mg IVPUSH ASDIRECTED PRN PRN Reason: Heart Calcium Polycarbophil (Fibercon) 625 mg PO BEDTIME PRN PRN Reason: Constipation Cholecalciferol (Vitamin D3) 1,000 units PO BEDTIME [facility] Last Admin: 02/13/19 20:24 Dose: 1,000 units Epinephrine HCl (Epinephrine 1:10,000) 1 mg IVPUSH ASDIRECTED PRN PRN Reason: Heart Fluticasone Propionate (Flonase) 0 gm NASBOTH BID [facility] Last Admin: 02/14/19 08:46 Dose: 1 spray Gabapentin (Neurontin) 300 mg PO BEDTIME [facility] Last Admin: 02/13/19 20:24 Dose: 300 mg Lidocaine HCl (Xylocaine 2%) 0 mg IVPUSH ASDIRECTED PRN PRN Reason: Heart Loratadine (Claritin) 10 mg PO DAILY [facility] Last Admin: 02/14/19 08:46 Dose: 10 mg Losartan Potassium (Cozaar) 50 mg PO DAILY [facility] Last Admin: 02/14/19 08:46 Dose: 50 mg Melatonin (Melatonin) 3 mg PO BEDTIME PRN PRN Reason: Insomnia Last Admin: 02/13/19 20:24 Dose: 3 mg Multivitamins/Minerals (Centrum) 1 tab PO DAILY [facility] Nitroglycerin (Nitrostat) 0.4 mg SL ASDIRECTED PRN PRN Reason: Heart Nystatin (Nystop) 0 gm TOP BID PRN PRN Reason: Itching Polyethylene Glycol (Miralax) 17 gm PO DAILY PRN PRN Reason: Constipation Senna/Docusate Sodium (Senna Plus) 8.6 tab PO DAILY PRN PRN Reason: Constipation Sertraline HCl (Zoloft) 100 mg PO BEDTIME [facility] Last Admin: 02/13/19 20:24 Dose: 100 mg Sodium Chloride (Saline Flush) 10 ml FLUSH Q8HR PRN PRN Reason: keep vein open Vitamin B Complex (Vitamin B Complex) 1 each PO DAILY [facility] Last Admin: 02/14/19 08:46 Dose: 1 each Warfarin Sodium (Coumadin) 5 mg PO SUTUWETHFRSA [facility] Warfarin Sodium (Coumadin) 7.5 mg PO MO [facility] Last Admin: 02/13/19 18:12 Dose: 7.5 mg Warfarin Sodium (Pharmacy To Dose - Warfarin) 1 dose .XX ASDIRECTED [facility] Discontinued Medications Aspirin (Aspirin) 324 mg PO ONETIME ONE Stop: 02/13/19 16:08 Last Admin: 02/13/19 17:32 Dose: 324 mg Furosemide (Lasix) 40 mg IVPUSH NOW ONE Stop: 02/13/19 13:11 Last Admin: 02/13/19 14:03 Dose: 40 mg Non-Formulary Medication (Azelastine Hcl [Azelastine Hcl]) 2 spray NS Q12HR [facility] Vitamin B Complex/Vit C/Folic Acid (Nephrocaps) 1 tab PO DAILY [facility] Last Admin: 02/14/19 08:47 Dose: Not Given - Exam Quality Assessment: Supplemental Oxygen General: Alert, Oriented, Mild Distress Neck: JVD Lungs: Rales Cardiovascular: Irregular Rhythm, Murmurs GI/Abdominal Exam: Other (Male) Exam: Deferred Back Exam: No: CVA Tenderness (L), CVA Tenderness (R) Extremities: Pedal Edema (chronic BLE pitting edema, 2+) Peripheral Pulses: 2+: Radial (L), Radial (R) Wound/Incisions: No: Erythema Psy/Mental Status: Alert, Normal Affect. No: Labile Mood, Anxious, Agitated, Hallucinations - Problem List Review Problem List Initiated/Reviewed/Updated: Yes - My Orders Last 24 Hours: My Active Orders 02/13/19 12:10 Patient Status [ADT] Routine 02/13/19 12:59 Height and Weight [RC] DAILY Up With Assistance [RC] ASDIRECTED Sodium Chloride 0.9% [Saline Flush] 10 ml FLUSH Q8HR PRN Peripheral IV Insertion Adult [OM.PC] Routine Resuscitation Status Routine 02/13/19 13:00 Oxygen Therapy [RC] PRN VTE/DVT Education [RC] PER UNIT ROUTINE Vital Signs [RC] 0300,0700,1100,1500,1900,2300 02/13/19 13:02 Intake and Output [RC] 0600,1400,2200 02/13/19 13:07 Peripheral IV Care [RC] . DIRECTED 02/13/19 13:08 EKG Documentation Completion [RC] ASDIRECTED 02/13/19 13:11 IS (RT) [RT Incentive Spirometry] [RC] Q2HWA 02/13/19 Lunch Heart Healthy Diet [DIET] - Plan Plan:: Brief history (see H&P for full details) 43-year-old pleasant gentleman who is a resident of a long-term care center was admitted due to one-week complaint of increased shortness of breath and hypoxia at rest along with mucus production. He does have heart failure, and he was admitted for IV diuresis. Reviewed physical exam in clinic noted 2+ bilateral lower extremity pitting edema (however chronic), notable hepatojugular reflux, tachypnea, rales. BNP 522, electrolytes, creatinine 1.58. ____ Update on rounds, respiratory status slightly improved, able to speak 4 words between breaths, less JVD, weight is 239 however bed scale, ~ 2-3 pound loss when compared to clinic weight yesterday. Primary hospital problems --HFpEF, acute on chronic, diastolic BNP 522, ECHO (2017) EF is 55%, normal left ventricle size, no regional wall motion abnormalities. Echocardiogram September 2018 demonstrated markedly dilated left atrium. On ARB, I do not see patient on beta blockade --Hypoxia, on oxygen, improved --NSTEMI, slightly elevated troponin however trended out flat at 0.10, recommend no further trending --Hyperkalemia, mild --MARIA ISABEL, creatinine 1.58, GFR 42, --Pulm HTN, Severe, Pulm artery systolic pressure, 65 mmHg. --Obesity, co-morbid --Dissuse edema, BLE, --Obstructive sleep apnea, co-morbid --Atrial fibrillation, chronic anticoagulation, --Delirium prophylaxis, home melatonin Chronic medical problems Hypertension, ARB, Hx TAVR, chronic DAPT anticoagulation, may need Plavix HLD Anxiety Anemia, chronic disease Macular degeneration bilateral eyes peripheral neuropathy osteoarthritis, Insomnia Allergic rhinitis, chronic Disposition overall plan, continue diuresing, monitor electrolytes and renal indices, low sodium diet, elevate extremities due to disuse edema, TEDS, ankle pumps, monitor oxygen status. ? beta rio, consider removing Aldactone as patient has preserved ejection fraction.
[2019-02-14] MEDS ORDERED: Furosemide 40 MG/4 ML VIAL IVPUSH ONE (11:45)
[2019-02-14] MEDS: Sodium Chloride 0.9% 10 ML Syringe FLUSH PRN (12:46)
[2019-02-14] MEDS: Warfarin 5 MG Tab PO SCH (17:38)
[2019-02-14] MEDS: Cholecalciferol (Vitamin D3) 1,000 Unit Tab PO SCH (20:56)
[2019-02-14] MEDS: Melatonin 3 MG Tab PO PRN (20:56)
[2019-02-14] MEDS: Gabapentin 300 MG Cap PO SCH (20:56)
[2019-02-14] MEDS: Sertraline 50 MG Tab PO SCH (20:56)
[2019-02-15 08:39] LABS: ANION GAP 10.5 mmol/L (5-15)
[2019-02-15] MEDS: Aspirin 81 MG Tab.EC PO SCH (08:40)
[2019-02-15] MEDS: Multivitamins with Minerals/Iron/Folic Acid/Lycopene Tab PO SCH (08:40)
[2019-02-15] MEDS: atorvaSTATin 10 MG Tab PO SCH (08:40)
[2019-02-15] MEDS: Vitamin B Complex Tab PO SCH (08:40)
[2019-02-15] MEDS: Loratadine 10 MG Tab PO SCH (08:40)
[2019-02-15] MEDS: ALPRAZolam 0.25 MG Tab PO SCH (08:40)
[2019-02-15] MEDS: Losartan 50 MG Tab PO SCH (08:40)
[2019-02-15] MEDS: Fluticasone Propionate Nasal Spray 16 GM Bottle NASBOTH SCH ×2 (08:41→20:42)
[2019-02-15] MEDS ORDERED: Furosemide 40 MG/4 ML VIAL IVPUSH ONE ×2 (10:31→16:00)
--- NOTE | 2019-02-15 10:36 | PCM.PN ---
- General Info Date of Service: 02/15/19 Functional Status: Reports: Pain Controlled, Tolerating Diet, Urinating, New Symptoms (Cold-like symptoms today with nasal congestion) - Review of Systems General: Denies: Fever, Night Sweats HEENT: Reports: Post Nasal Drip, Sinus Congestion. Denies: Sore Throat Pulmonary: Reports: Shortness of Breath. Denies: Sputum Cardiovascular: Reports: Dyspnea on Exertion, Edema (Edema lower extremities improving). Denies: Orthopnea Gastrointestinal: Reports: No Symptoms Genitourinary: Reports: No Symptoms Musculoskeletal: Reports: No Symptoms Neurological: Denies: Confusion Psychiatric: Reports: No Symptoms - Patient Data Vitals - Most Recent: Last Vital Signs Temp 98.0 F 02/15/19 06:54 Pulse 56 L 02/15/19 09:05 Resp 20 02/15/19 09:05 BP 120/63 02/15/19 08:40 Pulse Ox 96 02/15/19 09:05 Weight - Most Recent: 233 lb 6 oz I&O - Last 24 Hours: Intake & Output 02/14/19 02/15/19 02/15/19 22:59 06:59 14:59 Intake Total 300 100 Output Total 700 200 Balance -400 -100 Lab Results Last 24 Hours: Laboratory Results - last 24 hr 02/15/19 Range/Units 07:55 Sodium 141 (136-145) mmol/L Potassium 4.6 (3.3-5.3) mmol/L Chloride 103 (98-115) mmol/L Carbon Dioxide 32.1 H (21.0-32.0) mmol/L Anion Gap 10.5 (5-15) mmol/L BUN 40 H (6-25) mg/dL Creatinine 1.48 H (0.51-1.17) mg/dL Est Cr Clr Drug Dosing 37.15 mL/min Estimated GFR (MDRD) 45 mL/min Glucose 95 (75 - 99) mg/dL Calcium 8.9 (8.7-10.3) mg/dL Med Orders - Current: Current Medications Acetaminophen (Tylenol Arthritis Pain) 650 mg PO BEDTIME PRN PRN Reason: Pain Alprazolam (Xanax) 0.25 mg PO DAILY [facility] Last Admin: 02/15/19 08:40 Dose: 0.25 mg Aspirin (Halfprin) 81 mg PO DAILY [facility] Last Admin: 02/15/19 08:40 Dose: 81 mg Atorvastatin Calcium (Lipitor) 10 mg PO DAILY [facility] Last Admin: 02/15/19 08:40 Dose: 10 mg Atropine Sulfate (Atropine 0.1 Mg/Ml) 0 mg IVPUSH ASDIRECTED PRN PRN Reason: Heart Last Admin: 02/14/19 12:24 Dose: 0.5 mg Calcium Polycarbophil (Fibercon) 625 mg PO BEDTIME PRN PRN Reason: Constipation Cholecalciferol (Vitamin D3) 1,000 units PO BEDTIME [facility] Last Admin: 02/14/19 20:56 Dose: 1,000 units Epinephrine HCl (Epinephrine 1:10,000) 1 mg IVPUSH ASDIRECTED PRN PRN Reason: Heart Fluticasone Propionate (Flonase) 0 gm NASBOTH BID [facility] Last Admin: 02/15/19 08:41 Dose: 1 spray Gabapentin (Neurontin) 300 mg PO BEDTIME [facility] Last Admin: 02/14/19 20:56 Dose: 300 mg Lidocaine HCl (Xylocaine 2%) 0 mg IVPUSH ASDIRECTED PRN PRN Reason: Heart Loratadine (Claritin) 10 mg PO DAILY [facility] Last Admin: 02/15/19 08:40 Dose: 10 mg Losartan Potassium (Cozaar) 50 mg PO DAILY [facility] Last Admin: 02/15/19 08:40 Dose: 50 mg Melatonin (Melatonin) 3 mg PO BEDTIME PRN PRN Reason: Insomnia Last Admin: 02/14/19 20:56 Dose: 3 mg Multivitamins/Minerals (Centrum) 1 tab PO DAILY [facility] Last Admin: 02/15/19 08:40 Dose: 1 tab Nitroglycerin (Nitrostat) 0.4 mg SL ASDIRECTED PRN PRN Reason: Heart Nystatin (Nystop) 0 gm TOP BID PRN PRN Reason: Itching Polyethylene Glycol (Miralax) 17 gm PO DAILY PRN PRN Reason: Constipation Senna/Docusate Sodium (Senna Plus) 8.6 tab PO DAILY PRN PRN Reason: Constipation Sertraline HCl (Zoloft) 100 mg PO BEDTIME [facility] Last Admin: 02/14/19 20:56 Dose: 100 mg Sodium Chloride (Saline Flush) 10 ml FLUSH Q8HR PRN PRN Reason: keep vein open Last Admin: 02/14/19 12:46 Dose: 10 ml Vitamin B Complex (Vitamin B Complex) 1 each PO DAILY [facility] Last Admin: 02/15/19 08:40 Dose: 1 each Warfarin Sodium (Coumadin) 5 mg PO SUTUWETHFRSA [facility] Last Admin: 02/14/19 17:38 Dose: 5 mg Warfarin Sodium (Coumadin) 7.5 mg PO MO [facility] Last Admin: 02/13/19 18:12 Dose: 7.5 mg Warfarin Sodium (Pharmacy To Dose - Warfarin) 1 dose .XX ASDIRECTED [facility] Discontinued Medications Aspirin (Aspirin) 324 mg PO ONETIME ONE Stop: 02/13/19 16:08 Last Admin: 02/13/19 17:32 Dose: 324 mg Furosemide (Lasix) 40 mg IVPUSH NOW ONE Stop: 02/13/19 13:11 Last Admin: 02/13/19 14:03 Dose: 40 mg Furosemide (Lasix) 40 mg IVPUSH NOW ONE Stop: 02/14/19 11:46 Last Admin: 02/14/19 12:46 Dose: 40 mg Non-Formulary Medication (Azelastine Hcl [Azelastine Hcl]) 2 spray NS Q12HR [facility] Vitamin B Complex/Vit C/Folic Acid (Nephrocaps) 1 tab PO DAILY [facility] Last Admin: 02/14/19 08:47 Dose: Not Given - Exam Quality Assessment: Supplemental Oxygen (Oxygen down to 2 L) General: Alert, Oriented, Cooperative, No Acute Distress Neck: JVD (Mild but improving) Lungs: Crackles (Mild crackles right middle lobe) Cardiovascular: Regular Rate, Irregular Rhythm GI/Abdominal Exam: Soft (Male) Exam: Deferred Back Exam: No: CVA Tenderness (L), CVA Tenderness (R) Extremities: Pedal Edema (Pedal edema bilateral lower extremities however improving) Skin: Other (Thin-skinned upper extremities with multiple areas of bruising present on admission) - Problem List Review Problem List Initiated/Reviewed/Updated: Yes - My Orders Last 24 Hours: My Active Orders 02/14/19 12:37 Antiembolic Devices [RC] 0900,2100 Elevate Extremity [RC] 0900,2100 RT Incentive Spirometry [RC] Q1HWA [place] Hose Substitution [Sequential Compression Device] [OM.PC] Routine 02/14/19 Dinner Low Sodium [Sodium Restricted Diet] [DIET] - Plan Plan:: Brief history (see H&P for full details) 43-year-old pleasant gentleman who is a resident of a long-term care center was admitted due to one-week complaint of increased shortness of breath and hypoxia at rest along with mucus production. He does have heart failure, and he was admitted for IV diuresis. Reviewed physical exam in clinic noted 2+ bilateral lower extremity pitting edema (however chronic), notable hepatojugular reflux, tachypnea, rales. BNP 522, electrolytes, creatinine 1.58. ____ Update on rounds, respiratory status improving seems to be able to speak more words between breaths, cold-like symptoms today with nasal congestion, weight loss approximate 5 pounds from yesterday approximately 10 since admission, less JVD, output -730 past 24 hour, requiring less oxygen. Review telemetry from last night no complications. Primary hospital problems --HFpEF, acute on chronic, diastolic BNP 522, ECHO (2017) EF is 55%, normal left ventricle size, no regional wall motion abnormalities. Echocardiogram September 2018 demonstrated markedly dilated left atrium. On ARB, I do not see patient on beta blockade --Hypoxia, on oxygen, improving --NSTEMI, slightly elevated troponin however trended out flat at 0.10, recommend no further trending --Hyperkalemia, resolvedc --MARIA ISABEL, creatinine 1.48, GFR 45, trending positively --Pulm HTN, Severe, Pulm artery systolic pressure, 65 mmHg. --Obesity, co-morbid --Dissuse edema, BLE, rest today --Obstructive sleep apnea, co-morbid --Atrial fibrillation, chronic anticoagulation, --Delirium prophylaxis, home melatonin Chronic medical problems Hypertension, ARB, Hx TAVR, chronic DAPT anticoagulation, may need Plavix HLD Anxiety Anemia, chronic disease Macular degeneration bilateral eyes peripheral neuropathy osteoarthritis, Insomnia Allergic rhinitis, chronic Disposition overall plan, continue diuresing, monitor electrolytes and renal indices, continue with low sodium diet, elevate extremities due to disuse edema , TEDS, ankle pumps, monitor oxygen status. Doubtful can start beta rio due to minimal heart rate. Upon discharge will discontinue Aldactone as he has preserved ejection fraction. Can remove telemetry today, Anticipate discharge between 24-48 hrs.
[2019-02-15] MEDS: Sodium Chloride 0.9% 10 ML Syringe FLUSH PRN (17:18)
[2019-02-15] MEDS: Warfarin 5 MG Tab PO SCH (18:24)
[2019-02-15] MEDS: Sertraline 50 MG Tab PO SCH (20:42)
[2019-02-15] MEDS: Gabapentin 300 MG Cap PO SCH (20:42)
[2019-02-15] MEDS: Melatonin 3 MG Tab PO PRN (20:42)
[2019-02-15] MEDS: Cholecalciferol (Vitamin D3) 1,000 Unit Tab PO SCH (20:42)
[2019-02-16 07:50] LABS: ANION GAP 11.3 mmol/L (5-15)
[2019-02-16] MEDS: Fluticasone Propionate Nasal Spray 16 GM Bottle NASBOTH SCH ×2 (08:47→20:24)
[2019-02-16] MEDS: ALPRAZolam 0.25 MG Tab PO SCH (08:54)
[2019-02-16] MEDS: Vitamin B Complex Tab PO SCH (08:54)
[2019-02-16] MEDS: Aspirin 81 MG Tab.EC PO SCH (08:55)
[2019-02-16] MEDS: Losartan 50 MG Tab PO SCH (08:55)
[2019-02-16] MEDS: Loratadine 10 MG Tab PO SCH (08:55)
[2019-02-16] MEDS: atorvaSTATin 10 MG Tab PO SCH (08:55)
[2019-02-16] MEDS: Multivitamins with Minerals/Iron/Folic Acid/Lycopene Tab PO SCH (08:55)
--- NOTE | 2019-02-16 10:05 | PCM.SN ---
- Free Text/Narrative Note: On February 15, 2019 patient developed epistaxis left nostril, likely contributable to oxygen therapy without humidification in conjunction with slightly elevated INR. Anterior sized Rhino Rocket was placed without difficulty. Uses are to monitor for any signs of TSS such as fever, low blood pressure or inability to tolerate. the patient and family consented to procedure.
[2019-02-16] MEDS ORDERED: Furosemide 40 MG/4 ML VIAL IVPUSH ONE (10:29)
--- NOTE | 2019-02-16 10:35 | PCM.PN ---
- General Info Date of Service: 02/16/19 Functional Status: Reports: Pain Controlled, Tolerating Diet, New Symptoms ( Epistaxis yesterday Rhino Rocket was placed). Denies: Ambulating - Review of Systems General: Denies: Fever, Weakness, Fatigue, Malaise, Night Sweats HEENT: Reports: Other (Rhino Rocket was removed this morning, mild epistaxis been 30 minutes upon removal) Pulmonary: Reports: Shortness of Breath. Denies: Cough, Sputum, Hemoptysis Cardiovascular: Reports: Edema. Denies: Chest Pain, Palpitations, Orthopnea Gastrointestinal: Reports: No Symptoms Genitourinary: Reports: No Symptoms Neurological: Denies: Confusion, Change in Speech Psychiatric: Reports: No Symptoms - Patient Data Vitals - Most Recent: Last Vital Signs Temp 97.4 F 02/16/19 06:51 Pulse 63 02/16/19 06:51 Resp 20 02/16/19 06:51 BP 120/52 L 02/16/19 08:55 Pulse Ox 95 02/16/19 07:00 Weight - Most Recent: 233 lb 6 oz I&O - Last 24 Hours: Intake & Output 02/15/19 02/16/19 02/16/19 22:59 06:59 14:59 Intake Total 640 200 Output Total 1100 600 Balance -460 -400 Lab Results Last 24 Hours: Laboratory Results - last 24 hr 02/16/19 02/16/19 Range/Units 07:10 07:10 PT 29.4 H (8.9-11.4) SEC INR 3.0 H (0.9-1.1) Sodium 147 H (136-145) mmol/L Potassium 4.2 (3.3-5.3) mmol/L Chloride 105 (98-115) mmol/L Carbon Dioxide 34.9 H (21.0-32.0) mmol/L Anion Gap 11.3 (5-15) mmol/L BUN 45 H (6-25) mg/dL Creatinine 1.41 H (0.51-1.17) mg/dL Est Cr Clr Drug Dosing 39.00 mL/min Estimated GFR (MDRD) 48 mL/min Glucose 102 H (75 - 99) mg/dL Calcium 8.6 L (8.7-10.3) mg/dL Med Orders - Current: Current Medications Acetaminophen (Tylenol Arthritis Pain) 650 mg PO BEDTIME PRN PRN Reason: Pain Alprazolam (Xanax) 0.25 mg PO DAILY COUNTS INCLUDE 234 BEDS AT THE [facility] Last Admin: 02/16/19 08:54 Dose: 0.25 mg Aspirin (Halfprin) 81 mg PO DAILY COUNTS INCLUDE 234 BEDS AT THE [facility] Last Admin: 02/16/19 08:55 Dose: 81 mg Atorvastatin Calcium (Lipitor) 10 mg PO DAILY COUNTS INCLUDE 234 BEDS AT THE [facility] Last Admin: 02/16/19 08:55 Dose: 10 mg Atropine Sulfate (Atropine 0.1 Mg/Ml) 0 mg IVPUSH ASDIRECTED PRN PRN Reason: Heart Last Admin: 02/14/19 12:24 Dose: 0.5 mg Calcium Polycarbophil (Fibercon) 625 mg PO BEDTIME PRN PRN Reason: Constipation Cholecalciferol (Vitamin D3) 1,000 units PO BEDTIME COUNTS INCLUDE 234 BEDS AT THE [facility] Last Admin: 02/15/19 20:42 Dose: 1,000 units Epinephrine HCl (Epinephrine 1:10,000) 1 mg IVPUSH ASDIRECTED PRN PRN Reason: Heart Fluticasone Propionate (Flonase) 0 gm NASBOTH BID COUNTS INCLUDE 234 BEDS AT THE [facility] Last Admin: 02/16/19 08:47 Dose: Not Given Gabapentin (Neurontin) 300 mg PO BEDTIME COUNTS INCLUDE 234 BEDS AT THE [facility] Last Admin: 02/15/19 20:42 Dose: 300 mg Lidocaine HCl (Xylocaine 2%) 0 mg IVPUSH ASDIRECTED PRN PRN Reason: Heart Loratadine (Claritin) 10 mg PO DAILY COUNTS INCLUDE 234 BEDS AT THE [facility] Last Admin: 02/16/19 08:55 Dose: 10 mg Losartan Potassium (Cozaar) 50 mg PO DAILY COUNTS INCLUDE 234 BEDS AT THE [facility] Last Admin: 02/16/19 08:55 Dose: 50 mg Melatonin (Melatonin) 3 mg PO BEDTIME PRN PRN Reason: Insomnia Last Admin: 02/15/19 20:42 Dose: 3 mg Multivitamins/Minerals (Centrum) 1 tab PO DAILY COUNTS INCLUDE 234 BEDS AT THE [facility] Last Admin: 02/16/19 08:55 Dose: 1 tab Nitroglycerin (Nitrostat) 0.4 mg SL ASDIRECTED PRN PRN Reason: Heart Nystatin (Nystop) 0 gm TOP BID PRN PRN Reason: Itching Polyethylene Glycol (Miralax) 17 gm PO DAILY PRN PRN Reason: Constipation Senna/Docusate Sodium (Senna Plus) 8.6 tab PO DAILY PRN PRN Reason: Constipation Sertraline HCl (Zoloft) 100 mg PO BEDTIME COUNTS INCLUDE 234 BEDS AT THE [facility] Last Admin: 02/15/19 20:42 Dose: 100 mg Sodium Chloride (Saline Flush) 10 ml FLUSH Q8HR PRN PRN Reason: keep vein open Last Admin: 02/15/19 17:18 Dose: 10 ml Vitamin B Complex (Vitamin B Complex) 1 each PO DAILY COUNTS INCLUDE 234 BEDS AT THE [facility] Last Admin: 02/16/19 08:54 Dose: 1 each Warfarin Sodium (Coumadin) 5 mg PO SUTUWETHFRSA COUNTS INCLUDE 234 BEDS AT THE [facility] Last Admin: 02/15/19 18:24 Dose: 5 mg Warfarin Sodium (Coumadin) 7.5 mg PO MO COUNTS INCLUDE 234 BEDS AT THE [facility] Last Admin: 02/13/19 18:12 Dose: 7.5 mg Warfarin Sodium (Pharmacy To Dose - Warfarin) 1 dose .XX ASDIRECTED COUNTS INCLUDE 234 BEDS AT THE [facility] Discontinued Medications Aspirin (Aspirin) 324 mg PO ONETIME ONE Stop: 02/13/19 16:08 Last Admin: 02/13/19 17:32 Dose: 324 mg Furosemide (Lasix) 40 mg IVPUSH NOW ONE Stop: 02/13/19 13:11 Last Admin: 02/13/19 14:03 Dose: 40 mg Furosemide (Lasix) 40 mg IVPUSH NOW ONE Stop: 02/14/19 11:46 Last Admin: 02/14/19 12:46 Dose: 40 mg Furosemide (Lasix) 40 mg IVPUSH NOW ONE Stop: 02/15/19 10:32 Last Admin: 02/15/19 12:43 Dose: 40 mg Furosemide (Lasix) 20 mg IVPUSH NOW ONE Stop: 02/15/19 16:01 Last Admin: 02/15/19 17:17 Dose: 20 mg Non-Formulary Medication (Azelastine Hcl [Azelastine Hcl]) 2 spray NS Q12HR COUNTS INCLUDE 234 BEDS AT THE [facility] Vitamin B Complex/Vit C/Folic Acid (Nephrocaps) 1 tab PO DAILY COUNTS INCLUDE 234 BEDS AT THE [facility] Last Admin: 02/14/19 08:47 Dose: Not Given - Exam Quality Assessment: Supplemental Oxygen (Oxygen down to 1-2 L nasal cannula-- with humidification) General: Alert, Oriented Neck: Supple. No: JVD Lungs: Rales (Rales are improving) Cardiovascular: Irregular Rhythm. No: Tachycardia GI/Abdominal Exam: Soft, No Distention (Male) Exam: Deferred Back Exam: No: CVA Tenderness (L), CVA Tenderness (R) Extremities: Pedal Edema (Less edema lower extremities) Skin: Other (Multiple areas of bruising arms) Neurological: No New Focal Deficit Psy/Mental Status: Alert, Normal Affect, Normal Mood - Problem List Review Problem List Initiated/Reviewed/Updated: Yes - Plan Plan:: Brief history (see H&P for full details) 43-year-old pleasant gentleman who is a resident of a long-term care center was admitted due to one-week complaint of increased shortness of breath and hypoxia at rest along with mucus production. He does have heart failure, and he was admitted for IV diuresis. Reviewed physical exam in clinic noted 2+ bilateral lower extremity pitting edema (however chronic), notable hepatojugular reflux, tachypnea, rales. BNP 522, electrolytes, creatinine 1.58. ____ Update on rounds, removed Rhino Rocket from left nare, epistaxis mild within 30 minutes upon removing, Vaseline applied. oxygen with humidification, INR 3.0 today. Respiratory status, ongoing diuresing, 5-1/2 pound weight loss past 24 hours (~17 since admission) Primary hospital problems --HFpEF, acute on chronic, diastolic BNP 522, ECHO (2017) EF is 55%, normal left ventricle size, no regional wall motion abnormalities. Echocardiogram September 2018 demonstrated markedly dilated left atrium. On ARB, I do not see patient on beta blockade --Hypoxia, on oxygen, improving --NSTEMI, slightly elevated troponin however trended out flat at 0.10, recommend no further trending --Hypernatremia, likely extracellular expansion with mild free water deficit. --Hyperkalemia, resolved --MARIA ISABEL, creatinine 1.45, GFR 45, trending positively --Pulm HTN, Severe, Pulm artery systolic pressure, 65 mmHg. --Obesity, co-morbid --Dissuse edema, BLE, elevation, ankle pumps --Obstructive sleep apnea, co-morbid --Atrial fibrillation, chronic anticoagulation, --Delirium prophylaxis, home melatonin Chronic medical problems Hypertension, ARB, Hx TAVR, chronic DAPT anticoagulation, may need Plavix HLD Anxiety Anemia, chronic disease Macular degeneration bilateral eyes peripheral neuropathy osteoarthritis, Insomnia Allergic rhinitis, chronic Disposition/overall plan, removed Rhino Rocket, attempt to wean oxygen today, reduce Lasix to 20 mg IV push 1 today. monitor electrolytes and renal indices, continue with low sodium diet, elevate extremities due to disuse edema, TEDS, ankle pumps, monitor oxygen status in hopes to wean today if possible. Doubtful can start beta rio due to minimal heart rate. Upon discharge will discontinue Aldactone as he has preserved ejection fraction. Reduce dose Coumadin tonight Anticipate discharge tomorrow February 17 back to long-term care
[2019-02-16] MEDS: Sodium Chloride 0.9% 10 ML Syringe FLUSH PRN (11:07)
[2019-02-16] MEDS: Phytonadione 100 MCG Tab PO SCH (11:37)
[2019-02-16] MEDS ORDERED: Warfarin 2.5 MG Tab PO SCH (18:00)
[2019-02-16] MEDS: Warfarin 5 MG Tab PO SCH (20:09)
[2019-02-16] MEDS: Cholecalciferol (Vitamin D3) 1,000 Unit Tab PO SCH (20:24)
[2019-02-16] MEDS: Gabapentin 300 MG Cap PO SCH (20:24)
[2019-02-16] MEDS: Sertraline 50 MG Tab PO SCH (20:25)
[2019-02-17 07:59] LABS: ANION GAP 4.4 mmol/L (5-15)
[2019-02-17] MEDS: ALPRAZolam 0.25 MG Tab PO SCH (10:10)
[2019-02-17] MEDS: Multivitamins with Minerals/Iron/Folic Acid/Lycopene Tab PO SCH (10:10)
[2019-02-17] MEDS: Aspirin 81 MG Tab.EC PO SCH (10:11)
[2019-02-17] MEDS: Phytonadione 100 MCG Tab PO SCH (10:12)
[2019-02-17] MEDS: atorvaSTATin 10 MG Tab PO SCH (10:12)
[2019-02-17] MEDS: Vitamin B Complex Tab PO SCH (10:12)
[2019-02-17] MEDS: Losartan 50 MG Tab PO SCH (10:12)
[2019-02-17] MEDS: Fluticasone Propionate Nasal Spray 16 GM Bottle NASBOTH SCH (10:13)
[2019-02-17] MEDS: Loratadine 10 MG Tab PO SCH (10:13)
[2019-02-17 10:15] VITALS: BP 117/61
[2019-02-17] MEDS ORDERED: Phytonadione 100 MCG Tab PO SCH (11:00)
--- NOTE | 2019-02-17 11:12 | PCM.DCSUM1 ---
Discharge Summary - Hospital Course Brief History: This is an 83 year old male who had presented to the clinic with concerns of shortness of breath requiring oxygen supplementation. He had been noticing slowly increasing shortness of breath for the past week. Associated productive cough with clear phlegm, congestion, and "extra spit" in his mouth. He had been afebrile. He was admitted for IV diuresis and further monitoring of his condition. - Discharge Data Discharge Date: 02/17/19 Discharge Disposition: DC/Tfer to [facility] 03 Condition: Good - Patient Instructions Diet: Heart Healthy Diet Activity: As Tolerated (with assistance) Notify Provider of: Fever Other/Special Instructions: Daily weights x 2 weeks, then twice weekly. Discharge weight 233 lbs. Notify provider if 3 pound weight increase in 2 days. Consider restarting PT after seen on rounds. Monitor for nasal bleeding. May use oxygen 1-2 liters per nasal cannula to keep saturations >90%. Notify provider if requiring more than 2 liters to maintain oxygen saturations. Repeat CBC and BMP next week. - Discharge Plan *PRESCRIPTION DRUG MONITORING PROGRAM REVIEWED*: Not Applicable *COPY OF PRESCRIPTION DRUG MONITORING REPORT IN PATIENT [place]: Not Applicable Prescriptions/Med Rec: Doxycycline [Vibramycin] 100 mg PO BID #14 tab Home Medications: Home Meds Acetaminophen [Tylenol Arthritis] 650 mg PO BEDTIME PRN 01/21/17 [History] Aspirin [Lo-Dose Aspirin EC] 81 mg PO DAILY 01/21/17 [History] Furosemide 20 mg PO DAILY 01/21/17 [History] Losartan [Cozaar] 50 mg PO DAILY 01/21/17 [History] Sertraline [Zoloft] 100 mg PO BEDTIME 01/21/17 [History] Vitamin B Complex 1 each PO DAILY 01/21/17 [History] Warfarin [Coumadin] 5 mg PO SUTUWETHFRSA 01/21/17 [History] atorvaSTATin Calcium [Atorvastatin Calcium] 10 mg PO DAILY 01/21/17 [History] Calcium Polycarbophil [Fiber Tabs] 625 mg PO BEDTIME PRN 09/25/18 [History] Cholecalciferol (Vitamin D3) [Vitamin D3] 1,000 units PO BEDTIME 09/25/18 [ History] Multivitamin [Daily Multiple Vitamin] 1 tab PO DAILY 09/25/18 [History] Polyethylene Glycol 3350 [MiraLAX] 17 gm PO DAILY PRN 09/25/18 [History] Sennosides [Senna Lax] 8.6 mg PO DAILY PRN 09/25/18 [History] Gabapentin [Neurontin] 300 mg PO BEDTIME 02/13/19 [History] Loratadine [Claritin] 10 mg PO DAILY 02/13/19 [History] Melatonin 3 mg PO BEDTIME PRN 02/13/19 [History] Nystatin 1 each MC BID PRN 02/13/19 [History] Trolamine Salicylate/Aloe Vera [Aspercreme 10% Cream] 85 gm TOP DAILY PRN [History] Warfarin Sodium [Coumadin] 7.5 mg PO MO 02/13/19 [History] Phytonadione [Vitamin K] 100 mcg PO DAILY 02/16/19 [History] ALPRAZolam [Xanax] 0.25 mg PO DAILY #0 02/17/19 [Rx] Doxycycline [Vibramycin] 100 mg PO BID #14 tab 02/17/19 [Rx] Oxygen Flow Rate (L/min): 1 Maintain SpO2% greater than: 90 Referrals: Jane Prado PA-C [Phys[facility]] - (Follow-up on residential rounds next week. ) - Discharge Summary/Plan Comment DC Time >30 min.: Yes Discharge Summary/Plan Comment: Date of admission: 02/13/19 Date of discharge: 02/17/19 Admitting diagnosis: Primary: HFpEF exacerbation, Hypoxia, Rule out CA Secondary: HTN, Chronic atrial fibrillation, Hx of mitral valve replacement, pulmonary artery hypertension, s/p left posterior cerebral artery CVA, HUNTER, Chronic allergic rhinitis, HLD, Obesity, Recurrent depression, Anxiety, Anemia of chronic disease, Peripheral neuropathy, Primary insomnia, Constipation, Generalized OA, Macular degeneration Final diagnosis: Primary: HFpEF exacerbation, resolved; NSTEMI, resolved; Hypoxia, resolved; Left nare epistaxis, stable/resolved; Acute bacterial sinusitis with right bacterial conjunctivitis. Secondary: HTN, Chronic atrial fibrillation, Hx of mitral valve replacement, pulmonary artery hypertension, s/p left posterior cerebral artery CVA, HUNTER, Chronic allergic rhinitis, HLD, Obesity, Recurrent depression, Anxiety, Anemia of chronic disease, Peripheral neuropathy, Primary insomnia, Constipation, Generalized OA, Macular degeneration Procedures performed: Placement of rhinorockets Hospital Course: The patient's hospital course went as expected in regards to CHF exacerbation. He was going to be discharged a day earlier, however he developed a significant nosebleed that required placement of a rhinorocket to the left nare. He was given IV lasix with improvement in weight. Discharge weight of 233 lbs with an approximate total of 11 pounds diuresed. He was noted to have mild hyperkalemia the day after admission. He did experience a mild NSTEMI with troponin of 0.11. Consult placed to drum tender in [place] regarding anticoagulation options. Patient's INR therapeutic at that time so no further anticoagulation was advised. Consideration for plavix however it was not initiated due to risk of bleeding. He was monitored with telemetry initially with chronic atrial fibrillation present. Patient noted to have increased nasal congestion and a conjunctivitis of the right eye. Given symptoms had been ongoing for over 1 week , he was discharged home with oral doxycycline (PCN allergy). Discharge labs: Hgb 10.6 WBC 7.11 with neutrophilia INR 2.9 K 4.2 BUN 65 Creatinine 1.42 GFR 47 New medications on discharge: Doxycycline 100 mg po BID x 7 days Changes to home medications on discharge: Discontinue spironolactone, Flonase, and Astelin Regular home medications on discharge: Vitamin K 100 mcg po daily Aspirin 81 mg po daily Lipitor 10 mg po daily Warfarin 5 mg po [id number] Warfarin 7.5 mg po Mo Calcium Polycarbophil 625 mg po HS PRN Gabapentin 300 mg po at HS Tylenol arthritis 650 mg po at HS PRN Vitamin B Complex 1 tab po daily Sertraline 100 mg po at HS Miralax 17 gm po daily PRN Multivitamin 1 tab po daily Losartan 50 mg po daily Vitamin D3 1000 units po at HS Aspercreme 10% top daily PRN Senna 8.6 mg po daily PRN Lasix 20 mg po daily Alprazolam 0.25 mg po daily Claritin 10 mg po daily Melatonin 3 mg po at HS PRN Nystatin 1 applic top BID PRN Condition, Treatment, and Final Disposition: The patient is in stable condition at the time of discharge. He will be seen by Jane Prado PA-C on residential rounds next week. jail instructed to monitor daily weights x 2 weeks and report a 3 pound weight increase in 2 days to provider. Orders placed for CBC and BMP next week. Consideration at follow-up would include determining if lasix 20 mg daily is enough of a diuretic as spironolactone was discontinued as he has a preserved ejection fraction. Also, consider restarting nasal sprays is chronic rhinitis symptoms persist. - General Info Date of Service: 02/17/19 - Review of Systems General: Denies: Fever, Weakness, Fatigue, Malaise, Chills HEENT: Reports: Glasses, Sinus Congestion, Sore Throat, Other (No further nosebleeds). Denies: Ear Pain (Left ear plugging, chronic, not worsened), Headaches Pulmonary: Reports: Shortness of Breath (improving), Cough, Sputum Cardiovascular: Denies: Chest Pain, Palpitations, Edema Gastrointestinal: Denies: Abdominal Pain, Constipation, Decreased Appetite, Diarrhea Neurological: Denies: Dizziness, Headache Psychiatric: Reports: No Symptoms - Patient Data Vitals - Most Recent: Last Vital Signs Temp 97.7 F 02/17/19 06:44 Pulse 65 02/17/19 06:44 Resp 18 02/17/19 06:44 BP 117/61 02/17/19 10:12 Pulse Ox 94 L 02/17/19 07:00 Weight - Most Recent: 271 lb 3.2 oz I&O - Last 24 hours: Intake & Output 02/16/19 02/17/19 02/17/19 22:59 06:59 14:59 Intake Total 480 Output Total 250 700 Balance 230 -700 Lab Results - Last 24 hrs: Laboratory Results - last 24 hr 02/17/19 02/17/19 02/17/19 Range/Units 07:15 07:15 07:15 WBC 7.11 (5.00-10.00) 10^3/uL RBC 3.34 L (4.50-6.00) 10^6/uL Hgb 10.6 L D (13.0-17.0) g/dL Hct 32.2 L (40.0-52.0) % MCV 96.4 H D (82.0-92.0) fL MCH 31.7 H (27.0-31.0) pg MCHC 32.9 (32.0-36.0) g/dL RDW 17.2 H (11.5-14.5) % Plt Count 130 L (150-400) 10^3/uL MPV 10.3 (7.4-10.4) fL Immature Gran % (Auto) 0.3 (0.0-5.0) % Neut % (Auto) 81.6 H (50.0-70.0) % Lymph % (Auto) 7.9 L (20.0-40.0) % [place] % (Auto) 7.2 (2.0-8.0) % Eos % (Auto) 2.3 (1.0-3.0) % Baso % (Auto) 0.7 (0.0-1.0) % Immature Gran # (Auto) 0.02 (0.00-0.50) 10^3/uL Neut # (Auto) 5.81 (2.50-7.00) 10^3/uL Lymph # (Auto) 0.56 L (1.00-4.00) 10^3/uL [place] # (Auto) 0.51 (0.10-0.80) 10^3/uL Eos # (Auto) 0.16 (0.10-0.30) 10^3/uL Baso # (Auto) 0.05 (0.00-0.10) 10^3/uL PT 28.5 H (8.9-11.4) SEC INR 2.9 H (0.9-1.1) Sodium 139 (136-145) mmol/L Potassium 4.2 (3.3-5.3) mmol/L Chloride 103 (98-115) mmol/L Carbon Dioxide 35.8 H (21.0-32.0) mmol/L Anion Gap 4.4 L (5-15) mmol/L BUN 65 H* (6-25) mg/dL Creatinine 1.43 H (0.51-1.17) mg/dL Est Cr Clr Drug Dosing 38.45 mL/min Estimated GFR (MDRD) 47 mL/min Glucose 107 H (75 - 99) mg/dL Calcium 8.4 L (8.7-10.3) mg/dL Med Orders - Current: Current Medications Acetaminophen (Tylenol Arthritis Pain) 650 mg PO BEDTIME PRN PRN Reason: Pain Alprazolam (Xanax) 0.25 mg PO DAILY [facility] Last Admin: 02/17/19 10:10 Dose: 0.25 mg Aspirin (Halfprin) 81 mg PO DAILY [facility] Last Admin: 02/17/19 10:11 Dose: 81 mg Atorvastatin Calcium (Lipitor) 10 mg PO DAILY [facility] Last Admin: 02/17/19 10:12 Dose: 10 mg Atropine Sulfate (Atropine 0.1 Mg/Ml) 0 mg IVPUSH ASDIRECTED PRN PRN Reason: Heart Last Admin: 02/14/19 12:24 Dose: 0.5 mg Calcium Polycarbophil (Fibercon) 625 mg PO BEDTIME PRN PRN Reason: Constipation Cholecalciferol (Vitamin D3) 1,000 units PO BEDTIME [facility] Last Admin: 02/16/19 20:24 Dose: 1,000 units Epinephrine HCl (Epinephrine 1:10,000) 1 mg IVPUSH ASDIRECTED PRN PRN Reason: Heart Fluticasone Propionate (Flonase) 0 gm NASBOTH BID [facility] Last Admin: 02/17/19 10:13 Dose: Not Given Gabapentin (Neurontin) 300 mg PO BEDTIME [facility] Last Admin: 02/16/19 20:24 Dose: 300 mg Lidocaine HCl (Xylocaine 2%) 0 mg IVPUSH ASDIRECTED PRN PRN Reason: Heart Loratadine (Claritin) 10 mg PO DAILY [facility] Last Admin: 02/17/19 10:13 Dose: 10 mg Losartan Potassium (Cozaar) 50 mg PO DAILY [facility] Last Admin: 02/17/19 10:12 Dose: 50 mg Melatonin (Melatonin) 3 mg PO BEDTIME PRN PRN Reason: Insomnia Last Admin: 02/15/19 20:42 Dose: 3 mg Multivitamins/Minerals (Centrum) 1 tab PO DAILY [facility] Last Admin: 02/17/19 10:10 Dose: 1 tab Nitroglycerin (Nitrostat) 0.4 mg SL ASDIRECTED PRN PRN Reason: Heart Nystatin (Nystop) 0 gm TOP BID PRN PRN Reason: Itching Phytonadione (Vitamin K) 100 mcg PO DAILY [facility] Last Admin: 02/17/19 10:12 Dose: 100 mcg Polyethylene Glycol (Miralax) 17 gm PO DAILY PRN PRN Reason: Constipation Senna/Docusate Sodium (Senna Plus) 8.6 tab PO DAILY PRN PRN Reason: Constipation Sertraline HCl (Zoloft) 100 mg PO BEDTIME [facility] Last Admin: 02/16/19 20:25 Dose: 100 mg Sodium Chloride (Saline Flush) 10 ml FLUSH Q8HR PRN PRN Reason: keep vein open Last Admin: 02/16/19 11:07 Dose: 10 ml Vitamin B Complex (Vitamin B Complex) 1 each PO DAILY [facility] Last Admin: 02/17/19 10:12 Dose: 1 each Warfarin Sodium (Coumadin) 5 mg PO SUTUWETHFRSA [facility] Last Admin: 02/16/19 20:09 Dose: 5 mg Warfarin Sodium (Coumadin) 7.5 mg PO MO [facility] Last Admin: 02/13/19 18:12 Dose: 7.5 mg Warfarin Sodium (Pharmacy To Dose - Warfarin) 1 dose .XX ASDIRECTED [facility] Discontinued Medications Aspirin (Aspirin) 324 mg PO ONETIME ONE Stop: 02/13/19 16:08 Last Admin: 02/13/19 17:32 Dose: 324 mg Furosemide (Lasix) 40 mg IVPUSH NOW ONE Stop: 02/13/19 13:11 Last Admin: 02/13/19 14:03 Dose: 40 mg Furosemide (Lasix) 40 mg IVPUSH NOW ONE Stop: 02/14/19 11:46 Last Admin: 02/14/19 12:46 Dose: 40 mg Furosemide (Lasix) 40 mg IVPUSH NOW ONE Stop: 02/15/19 10:32 Last Admin: 02/15/19 12:43 Dose: 40 mg Furosemide (Lasix) 20 mg IVPUSH NOW ONE Stop: 02/15/19 16:01 Last Admin: 02/15/19 17:17 Dose: 20 mg Furosemide (Lasix) 20 mg IVPUSH NOW ONE Stop: 02/16/19 10:30 Last Admin: 02/16/19 11:05 Dose: 20 mg Non-Formulary Medication (Azelastine Hcl [Azelastine Hcl]) 2 spray NS Q12HR [facility] Phytonadione (Vitamin K) 100 mcg PO DAILY [facility] Vitamin B Complex/Vit C/Folic Acid (Nephrocaps) 1 tab PO DAILY [facility] Last Admin: 02/14/19 08:47 Dose: Not Given Warfarin Sodium (Coumadin) 2.5 mg PO ONETIME [facility] - Exam Quality Assessment: Reports: Supplemental Oxygen (92% on room air), DVT Prophylaxis (on warfarin) General: Reports: Alert, Oriented, Cooperative, No Acute Distress HEENT: Reports: Other (rhinorocket removed from left nare; small clot to anterior nare; no active bleeding to either nare; right conjunctiva injected with purulent discharge) Lungs: Reports: Normal Respiratory Effort, Decreased Breath Sounds (throughout) . Denies: Crackles, Wheezing Cardiovascular: Reports: Regular Rate, Irregular Rhythm, Murmurs GI/Abdominal Exam: Normal Bowel Sounds, Soft, Non-Tender Extremities: Other (trace edema to BLE) Skin: Reports: Warm, Dry Neurological: Reports: Normal Speech Psy/Mental Status: Reports: Alert, Normal Affect, Normal Mood
== END 2019-02-17 11:55 | DRG 281 ==
LOC: KA.MS 12:10
PROVIDERS: ADMIT Nurse Practitioner Family; ATTEND Family Medicine
PROC: 2Y41X5Z Packing of Nasal Region using Packing Material (ICD-10-PCS; principal; 2019-02-14)
DX: I11.0 Hypertensive heart disease with heart failure (principal); I21.4 Non-ST elevation (NSTEMI) myocardial infarction; E87.0 Hyperosmolality and hypernatremia; N17.9 Acute kidney failure, unspecified; Z68.41 Body mass index [BMI] 40.0-44.9, adult; I50.30 Unspecified diastolic (congestive) heart failure; I48.2 Chronic atrial fibrillation; G47.33 Obstructive sleep apnea (adult) (pediatric); J30.9 Allergic rhinitis, unspecified; E78.5 Hyperlipidemia, unspecified; E66.9 Obesity, unspecified; F32.9 Major depressive disorder, single episode, unspecified; D41.9 Neoplasm of uncertain behavior of unspecified urinary organ; D63.8 Anemia in other chronic diseases classified elsewhere; E11.42 Type 2 diabetes mellitus with diabetic polyneuropathy; F51.01 Primary insomnia; K59.00 Constipation, unspecified; M15.9 Polyosteoarthritis, unspecified; H35.30 Unspecified macular degeneration; J01.90 Acute sinusitis, unspecified; B96.89 Other specified bacterial agents as the cause of diseases classified elsewhere; H10.31 Unspecified acute conjunctivitis, right eye; R04.0 Epistaxis; E87.5 Hyperkalemia; I27.20 Pulmonary hypertension, unspecified; R09.02 Hypoxemia; Z79.82 Long term (current) use of aspirin; Z79.01 Long term (current) use of anticoagulants; Z79.899 Other long term (current) drug therapy; Z95.2 Presence of prosthetic heart valve; Z86.73 Personal history of transient ischemic attack (TIA), and cerebral infarction without residual deficits; Z88.0 Allergy status to penicillin; Z88.1 Allergy status to other antibiotic agents; Z98.42 Cataract extraction status, left eye; Z98.41 Cataract extraction status, right eye; Z87.891 Personal history of nicotine dependence
CPT/HCPCS: 36415; 80048; 84484; 85025; 85610; 93005; A9270-GY; J0461; J1940